=== PATIENT | female | born 1955 ===

== ENCOUNTER 2018-07-14 09:06 | Inpatient (IN) | payer MEDICARE ==
[2018-07-14] MEDS ORDERED: ACETAMINOPHEN TAB 325 MG TAB PO PRN (10:56)
[2018-07-14 12:16] LABS: Basophils % (A) 0 %; Eosinophils % (A) 0 %; HCT 37.6 % (34.0-46.0); Lymphocytes # (A) 0.5 k/uL (1.0-4.8); Lymphocytes % (A) 5 %; MCH 28.6 pg (25.0-35.0); MCHC 31.8 g/dL (31.0-37.0); MCV 89.9 fL (80.0-100.0); Mean Platelet Volume 8.1; Monocytes # (A) 0.2 k/uL (0-1.0); Monocytes % (A) 1 %; Neutrophils # (A) 10.5 k/uL (1.3-7.7); Neutrophils % (A) 93 %; Platelet Count 261 k/uL (150-450); RBC 4.18 m/uL (3.80-5.40); RDW 14.6 % (11.5-15.5); WBC 11.2 k/uL (3.8-10.6)
[2018-07-14] MEDS ORDERED: HYDROGEN PEROXIDE BOTTLE TOPICAL ONE (12:20)
[2018-07-14 12:28] LABS: ALT 24 U/L (9-52); AST 26 U/L (14-36); Alkaline Phosphatase 120 U/L (38-126); Anion Gap 11 mmol/L; Bilirubin, Delta 0.3 mg/dL (0.0-0.2); Blood Urea Nitrogen 12 mg/dL (7-17); Carbon Dioxide 22 mmol/L (22-30); Chloride 108 mmol/L (98-107); Glucose 127 mg/dL (74-99); Potassium 4.4 mmol/L (3.5-5.1); Sodium 141 mmol/L (137-145); Total Bilirubin 0.3 mg/dL (0.2-1.3); Total Protein 6.8 g/dL (6.3-8.2)
--- NOTE | 2018-07-14 12:54 | P.HPIM ---
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 Roa's esophagus,. As per documentation patient was chief complaint is shortness of her breast with patent trach its suction. Patient states that she is developing shortness of breath over 1-2 days which was really badly one day prior to admission to the hospital. Associated with cough and some phlegm which she couldn't tell the color because this through the trach, however she states she has chronic cough. He should have some chest pain on both sides of the lateral chest, and patient states it feels like I pulled my muscle. And they get worse with increasing movements. However patient denies fever. No hemoptysis. No change in urine or bowel habits. No dizziness. No syncope. No headache. An [place] her WBC is 14.2 K. Hemoglobin 11.7. Platelets 177. INR 1.0. BMP was unremarkable with creatinine 0.9. LFTs was unremarkable. Troponin is elevated at 0.8 doubt d-dimer was 2.17. Review of Systems CONSTITUTIONAL: No fever, no malaise, no fatigue. HEENT: No recent visual problems or hearing problems. Denied any sore throat. CARDIOVASCULAR: No orthopnea, PND, no palpitations, no syncope. PULMONARY: no hemoptysis. GASTROINTESTINAL: No diarrhea, no nausea, no vomiting, no abdominal pain. Normoactive bowel sounds. NEUROLOGICAL: No headaches, no weakness, no numbness. HEMATOLOGICAL: Denies any bleeding or petechiae. GENITOURINARY: Denies any burning micturition, frequency, or urgency. MUSCULOSKELETAL/RHEUMATOLOGICAL: Denies any joint pain, swelling, or any muscle pain. ENDOCRINE: Denies any polyuria or polydipsia. GENERAL: The patient is alert and oriented x3, not in any acute distress. Well developed, well nourished. HEENT: Pupils are round and equally reacting to light. EOMI. No scleral icterus. No conjunctival pallor. Normocephalic, atraumatic. No pharyngeal erythema. No thyromegaly. CARDIOVASCULAR: S1 and S2 present. No murmurs, rubs, or gallops. PULMONARY: Chest is clear to auscultation, no wheezing or crackles. ABDOMEN: Soft, nontender, nondistended, normoactive bowel sounds. No palpable organomegaly. MUSCULOSKELETAL: No joint swelling or deformity. EXTREMITIES: No cyanosis, clubbing, or pedal edema. NEUROLOGICAL: Gross neurological examination did not reveal any focal deficits. SKIN: No rashes. Labs and medication were reviewed.. Continue same treatment. Continue with symptomatic treatment. Resume home medication. Monitor lytes and vitals. DVT and GI prophylaxis. Further recommendations of the clinical course of the patient DVT prophylaxis: Subcutaneous heparin GI Prophylaxis: Pepcid PT/OT: Pending Prognosis is guarded Past Medical History Past Medical History: Asthma, Cancer, COPD, GERD/Reflux, Hypertension, Osteoarthritis (OA), Pneumonia, Renal Disease Additional Past Medical History / Comment(s): 2006 cancerous mass wrapped around vocal cords-treated with chemo/radiation, 2013 R lung cancer treated with chemo/radiation, 10/2016 R kidney cancer with surgery, trach d/t scar tissue obstructing airflow, neuropathies d/t chemo/radiation, bronchitis, roa's esophagus, hiatal hernia, generalized arthrtitis multiple joints. History of Any Multi-Drug Resistant Organisms: None Reported Additional Past Surgical History / Comment(s): 10/2016 R kidney cryosurgery d/t cancer, bronchoscopies, EGDs, colonoscopies, tracheostomy, mediport. Past Anesthesia/Blood Transfusion Reactions: No Reported Reaction, Motion Sickness Smoking Status: Former smoker - Past Family History Mother Family Medical History: Coronary Artery Disease (CAD), Diabetes Mellitus Additional Family Medical History / Comment(s): Mother of sepsis at the age of 62 yrs. She had heart disease. Father Family Medical History: Coronary Artery Disease (CAD), Myocardial Infarction ([place] ) Additional Family Medical History / Comment(s): Father had multiple MIs and of a [place] at the age of 59yrs. Medications and Allergies Home Medications Medication Instructions Recorded Confirmed Type Albuterol Nebulized [Ventolin 1.25 mg INHALATION RT-QID PRN 07/14/18 07/14/18 History Nebulized] Gabapentin [Neurontin] 300 mg PO HS 07/14/18 07/14/18 History HYDROcodone/APAP 10-325MG [[place] 1 tab PO Q4HR PRN 07/14/18 07/14/18 History 10-325] Lisinopril 20 mg PO DAILY 07/14/18 07/14/18 History Metoprolol Succinate [Toprol XL] 25 mg PO DAILY 07/14/18 07/14/18 History Allergies Allergy/AdvReac Type Severity Reaction Status Date / Time morphine Allergy Unknown Verified 07/14/18 10:45 Physical Exam Vitals: Vital Signs Temp Pulse Resp BP Pulse Ox 07/14/18 11:43 98.5 F 119 H 24 128/74 94 L 07/14/18 09:10 117 H 24 145/82 98 GENERAL: The patient is alert and oriented x3, not in any acute distress. Well developed, well nourished. HEENT: Pupils are round and equally reacting to light. EOMI. No scleral icterus. No conjunctival pallor. Normocephalic, atraumatic. No pharyngeal erythema. No thyromegaly. CARDIOVASCULAR: S1 and S2 present. No murmurs, rubs, or gallops. -PULMONARY: Chest is clear to auscultation, bilateral scattered wheezing. Patient have patent trach, with trach collar in place. ABDOMEN: Soft, nontender, nondistended, normoactive bowel sounds. No palpable organomegaly. MUSCULOSKELETAL: No joint swelling or deformity. EXTREMITIES: No cyanosis, clubbing, or pedal edema. NEUROLOGICAL: Gross neurological examination did not reveal any focal deficits. SKIN: No rashes. Results CBC & Chem 7: 07/14/18 11:17 Labs: Abnormal Lab Results - Last 24 Hours (Table) 07/14/18 Range/Units 11:17 WBC 11.2 H (3.8-10.6) k/uL Neutrophils # 10.5 H (1.3-7.7) k/uL Lymphocytes # 0.5 L (1.0-4.8) k/uL Thrombosis Risk Factor Assmnt - Choose All That Apply Any of the Below Risk Factors Present?: Yes Each Factor Represents 1 point: Abnormal pulmonary function (COPD), Obesity ( BMI >25) Other Risk Factors: Yes Each Risk Factor Represents 2 Points: Age 61-74 years, Malignancy Other congenital or acquired thrombophilia - If yes, enter type in comment: No Thrombosis Risk Factor Assessment Total Risk Factor Score: 6 Thrombosis Risk Factor Assessment Level: High Risk Assessment and Plan Assessment: Acute dyspnea with chest pain, rule out cardiac and pulmonary causes Possible acute COPD exacerbation Elevated troponins Elevated lactic acid High d-dimer 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 Hawkisn. Patient is status post trach. GERD Hypertension Plan: This is a pleasant 62 female presents with COPD exacerbation. We'll call cardiology and pulmonary consult for the above abnormality, continue with IV fluids and IV antibiotics. Continue with a breathing treatment. Continue with steroids, continue with oxygen inferior trach collar. Labs and medication were reviewed.. Continue same treatment. Continue with symptomatic treatment. Resume home medication. Monitor lytes and vitals. DVT and GI prophylaxis. Further recommendations of the clinical course of the patient DVT prophylaxis: Subcutaneous heparin GI Prophylaxis: Pepcid PT/OT: Pending Prognosis is guarded
[2018-07-14] MEDS: FAMOTIDINE 20 MG/2 ML VIAL IV SCH ×2 (14:52→21:21)
[2018-07-14] MEDS: HEPARIN SODIUM,PORCINE 5,000 UNIT/ML 1 ML VIAL SQ SCH (14:53)
[2018-07-14] MEDS: methylPREDNISolone SOD SUCCI 40 MG/ML 1 ML VIAL IV SCH (14:53)
[2018-07-14] MEDS: AZITHROMYCIN 500 MG in SODIUM CHLORIDE 0.9% 250 ML IVPB SCH (15:36)
[2018-07-14] MEDS: IPRATROPIUM-ALBUTEROL 3 ML NEB INHALATION SCH ×2 (15:47→20:05)
[2018-07-14] MEDS: HYDROcodone/APAP 10-325MG 1 EACH TAB PO PRN (21:19)
[2018-07-14] MEDS: GABAPENTIN 300 MG CAP PO SCH (21:21)
[2018-07-15] MEDS: HEPARIN SODIUM,PORCINE 5,000 UNIT/ML 1 ML VIAL SQ SCH ×4 (00:13→23:35)
[2018-07-15] MEDS: methylPREDNISolone SOD SUCCI 40 MG/ML 1 ML VIAL IV SCH ×4 (00:13→23:35)
[2018-07-15] MEDS: HYDROcodone/APAP 10-325MG 1 EACH TAB PO PRN ×4 (04:13→21:25)
[2018-07-15 06:08] LABS: Glucose,Whole Blood 130 mg/dL (75-99)
[2018-07-15] MEDS: INSULIN ASPART 100 UNIT/ML 1 ML 10 ML VIAL SQ SCH ×4 (06:59→21:23)
[2018-07-15 08:03] LABS: Basophils % (A) 0 %; Eosinophils % (A) 0 %; HGB 10.7 gm/dL (11.4-16.0); Lymphocytes # (A) 0.7 k/uL (1.0-4.8); Lymphocytes % (A) 7 %; MCH 28.1 pg (25.0-35.0); MCHC 32.2 g/dL (31.0-37.0); Mean Platelet Volume 6.9; Monocytes # (A) 0.4 k/uL (0-1.0); Monocytes % (A) 4 %; Neutrophils # (A) 9.8 k/uL (1.3-7.7); Neutrophils % (A) 89 %; Platelet Count 264 k/uL (150-450); RDW 14.6 % (11.5-15.5)
[2018-07-15 08:23] LABS: Anion Gap 10 mmol/L; Blood Urea Nitrogen 17 mg/dL (7-17); Calcium 9.4 mg/dL (8.4-10.2); Carbon Dioxide 22 mmol/L (22-30); Chloride 107 mmol/L (98-107); Glucose 118 mg/dL (74-99); Potassium 4.5 mmol/L (3.5-5.1); Sodium 139 mmol/L (137-145)
[2018-07-15] MEDS: IPRATROPIUM-ALBUTEROL 3 ML NEB INHALATION SCH ×4 (08:28→19:52)
[2018-07-15] MEDS: FAMOTIDINE 20 MG/2 ML VIAL IV SCH (08:50)
[2018-07-15] MEDS: LISINOPRIL 20 MG TAB PO SCH (08:50)
[2018-07-15] MEDS: METOPROLOL SUCCINATE (ER) 25 MG TAB.ER.24H PO SCH (08:50)
[2018-07-15 11:25] LABS: Glucose,Whole Blood 112 mg/dL (75-99)
--- NOTE | 2018-07-15 13:31 | XR ---
EXAMINATION TYPE: XR chest 2V DATE OF EXAM: 07/15/2018 COMPARISON: NONE TECHNIQUE: PA and lateral views submitted. HISTORY: Shortness of breath FINDINGS: Tracheostomy tube is seen and there is a left-sided Mediport. No pneumothorax. Subsegmental consolida tion at both lung bases. No overt failure. Curvature the spine with multilevel degenerative changes s een. Surgical clips in the abdomen noted. IMPRESSION: 1. Bilateral lower lobe atelectasis favored over pneumonia correlate clinically.
--- NOTE | 2018-07-15 14:49 | P.CNPUL ---
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 She has a chronic tracheostomy for last 10 years related to scar tissue obstructing airflow. History of Roa's esophagus. 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 Patient presents the emergency department for evaluation of shortness of breath for last couple of days, cough, some phlegm production, patient was having some chest wall soreness on both sides of her lower rib cage likely from coughing. Pain is worse with increasing movement. Denied any fever, denied any chills, no hemoptysis. No nausea, no vomiting or diarrhea. No lightheadedness, no dizziness. Patient went to [facility], and her white white count was 14.2, hemoglobin was 11.7, INR was within normal limits, BMP was unremarkable, LFTs were within normal limits, troponin was 0.8 and d-dimer was 2.17. Chest x-ray showed bilateral lower lobe atelectasis, no overt failure, no pneumothorax. Follow blood work today showed WBC of 11.0, hemoglobin is 10.7, BMP was within normal limits, second troponin was 0.549. Patient is currently on FiO2 of 35%. Review of Systems All systems: negative Constitutional: Denies chills, Denies fever Eyes: denies blurred vision, denies pain Ears, nose, mouth and throat: Denies headache, Denies sore throat Cardiovascular: Denies chest pain, Denies shortness of breath Respiratory: Reports cough with sputum, Reports dyspnea, Reports home oxygen, Denies cough Gastrointestinal: Denies abdominal pain, Denies diarrhea, Denies nausea, Denies vomiting Genitourinary: Denies dysuria, Denies hematuria Musculoskeletal: Denies myalgias Integumentary: Denies pruritus, Denies rash Neurological: Denies numbness, Denies weakness Psychiatric: Denies anxiety, Denies depression Endocrine: Denies fatigue, Denies weight change Past Medical History Past Medical History: Asthma, Cancer, COPD, GERD/Reflux, Hypertension, Osteoarthritis (OA), Pneumonia, Renal Disease Additional Past Medical History / Comment(s): 2006 cancerous mass wrapped around vocal cords-treated with chemo/radiation, 2013 R lung cancer treated with chemo/radiation, 10/2016 R kidney cancer with surgery, trach d/t scar tissue obstructing airflow, neuropathies d/t chemo/radiation, bronchitis, roa's esophagus, hiatal hernia, generalized arthrtitis multiple joints. History of Any Multi-Drug Resistant Organisms: None Reported Additional Past Surgical History / Comment(s): 10/2016 R kidney cryosurgery d/t cancer, bronchoscopies, EGDs, colonoscopies, tracheostomy, mediport. Past Anesthesia/Blood Transfusion Reactions: No Reported Reaction, Motion Sickness Smoking Status: Former smoker - Past Family History Mother Family Medical History: Coronary Artery Disease (CAD), Diabetes Mellitus Additional Family Medical History / Comment(s): Mother of sepsis at the age of 62 yrs. She had heart disease. Father Family Medical History: Coronary Artery Disease (CAD), Myocardial Infarction ([place] ) Additional Family Medical History / Comment(s): Father had multiple MIs and of a [place] at the age of 59yrs. Medications and Allergies Home Medications Medication Instructions Recorded Confirmed Type Albuterol Nebulized [Ventolin 1.25 mg INHALATION RT-QID PRN 07/14/18 07/14/18 History Nebulized] Gabapentin [Neurontin] 300 mg PO HS 07/14/18 07/14/18 History HYDROcodone/APAP 10-325MG [[place] 1 tab PO Q4HR PRN 07/14/18 07/14/18 History 10-325] Lisinopril 20 mg PO DAILY 07/14/18 07/14/18 History Metoprolol Succinate [Toprol XL] 25 mg PO DAILY 07/14/18 07/14/18 History Allergies Allergy/AdvReac Type Severity Reaction Status Date / Time morphine Allergy Unknown Verified 07/14/18 10:45 Physical Exam Vitals: Vital Signs Temp Pulse Pulse Resp BP Pulse Ox 07/15/18 12:34 108 H 07/15/18 12:24 104 H 07/15/18 09:08 98.5 F 111 H 18 128/73 98 07/15/18 08:42 110 H 07/15/18 08:28 108 H 07/15/18 04:00 98.3 F 118 H 23 145/91 96 07/15/18 00:00 97.8 F 100 21 126/71 95 07/14/18 20:16 118 H 07/14/18 20:06 116 H 07/14/18 20:00 97.5 F L 119 H 19 135/81 97 07/14/18 16:01 120 H 07/14/18 16:00 98.6 F 119 H 18 131/77 97 07/14/18 15:52 95 07/14/18 15:51 116 H Intake and Output 07/14/18 07/15/18 07/15/18 22:59 06:59 14:59 Intake Total 240 50 360 Output Total 300 Balance 240 50 60 Intake: IV 50 0.9 50 Oral 240 360 Output: Urine 300 Other: Voiding Method Toilet Toilet Toilet # Voids 2 2 Weight 85.8 kg GENERAL EXAM: Alert, comfortable in no apparent distress. HEAD: Normocephalic/atraumatic. EYES: Normal reaction of pupils, equal size. Conjunctiva pink, sclera white. NOSE: Clear with pink turbinates. THROAT: No erythema or exudates. NECK: No masses, no JVD, no thyroid enlargement, no adenopathy. CHEST: No chest wall deformity. Symmetrical expansion. LUNGS: Equal air entry with no crackles, wheeze, rhonchi or dullness. CVS: Regular rate and rhythm, normal S1 and S2, no gallops, no murmurs, no rubs ABDOMEN: Soft, nontender. No hepatosplenomegaly, normal bowel sounds, no guarding or rigidity. EXTREMITIES: No clubbing, no edema, no cyanosis, 2+ pulses and upper and lower extremities. MUSCULOSKELETAL: Muscle strength and tone normal. SPINE: No scoliosis or deformity SKIN: No rashes CENTRAL NERVOUS SYSTEM: Alert and oriented -3. No focal deficits, tone is normal in all 4 extremities. PSYCHIATRIC: Alert and oriented -3. Appropriate affect. Intact judgment and insight. Results - Laboratory Findings CBC and BMP: 07/15/18 06:29 07/15/18 06:29 Abnormal lab findings: Abnormal Labs 07/14/18 07/14/18 07/14/18 11:17 11:17 16:48 WBC 11.2 H Hgb Hct Neutrophils # 10.5 H Lymphocytes # 0.5 L Chloride 108 H Glucose 127 H POC Glucose (mg/dL) Delta Bilirubin 0.3 H Troponin I 0.549 H* 07/15/18 07/15/18 07/15/18 06:06 06:29 06:29 WBC 11.0 H Hgb 10.7 L Hct 33.0 L Neutrophils # 9.8 H Lymphocytes # 0.7 L Chloride Glucose 118 H POC Glucose (mg/dL) 130 H Delta Bilirubin Troponin I 07/15/18 11:23 WBC Hgb Hct Neutrophils # Lymphocytes # Chloride Glucose POC Glucose (mg/dL) 112 H Delta Bilirubin Troponin I - Diagnostic Findings Chest x-ray: report reviewed, image reviewed Assessment and Plan Plan: Assessment: #1. Acute exacerbation of chronic obstructive pulmonary disease #2. Mildly elevated troponins #3. Elevated d-dimer #4. History of COPD #5. Chronic tracheostomy related to scar tissue obstructing airflow #6. Vocal cord cancer diagnosed in 2006, status post chemotherapy and radiation. #7. History of lung cancer, status post chemotherapy and radiation, and the details regarding the type of lung cancer, stage, with the treatment are unavailable to us #8. History of renal cancer, status post right kidney cryotherapy #9. Hypertension #10. History of osteoarthritis Plan: Continue with current medical treatment, IV steroids, antibiotic treatments, bronchodilators. States she's feeling better compared to admission. Follow-up chest x-ray was obtained and reviewed by Dr. Boyle showed no clear evidence of pneumonia, showed bilateral lower lobe atelectasis. No significant leukocytosis , mild scattered wheezing. No acute distress. GI and DVT prophylaxis. I performed a history & physical examination of the patient and discussed their management with my nurse practitioner, Aure Don. I reviewed the nurse practitioner's note and agree with the documented findings and plan of care. Lung sounds are positive for mild scattered wheezing. The findings and the impression was discussed with the patient. I attest to the documentation by the nurse practitioner. Time with Patient: Greater than 30
[2018-07-15] MEDS: AZITHROMYCIN 500 MG in SODIUM CHLORIDE 0.9% 250 ML IVPB SCH (15:19)
--- NOTE | 2018-07-15 16:24 | P.CRDCN ---
History of Present Illness Consult date: 07/15/18 History of present illness: This is a 62-year-old female with history of COPD, GERD syndrome, hypertension and also cancer of the vocal cords status post chemo and radiation therapy in 2006, lung cancer diagnosed in 2013 and was treated with chemo and radiation, renal cancer diagnosed in 2016. Status post radiotherapy, also has chronic tracheostomy for the last 10 years. History of Roa's esophagus. 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 She came to the emergency department with complaints of shortness of breath, cough and sputum production. She was having some chest soreness seemed to be from coughing. The pain increases on deep breathing. Patient had 2 troponin values which are abnormal. These appear to be secondary to oxygen supply demand mismatch. She is comfortable today. Not having any chest pain and her breathing has improved. We will get an echocardiogram to assess LV function. Further recommendations depend upon the clinical course. Review of Systems As per the chart Past Medical History Past Medical History: Asthma, Cancer, COPD, GERD/Reflux, Hypertension, Osteoarthritis (OA), Pneumonia, Renal Disease Additional Past Medical History / Comment(s): 2006 cancerous mass wrapped around vocal cords-treated with chemo/radiation, 2013 R lung cancer treated with chemo/radiation, 10/2016 R kidney cancer with surgery, trach d/t scar tissue obstructing airflow, neuropathies d/t chemo/radiation, bronchitis, roa's esophagus, hiatal hernia, generalized arthrtitis multiple joints. History of Any Multi-Drug Resistant Organisms: None Reported Additional Past Surgical History / Comment(s): 10/2016 R kidney cryosurgery d/t cancer, bronchoscopies, EGDs, colonoscopies, tracheostomy, mediport. Past Anesthesia/Blood Transfusion Reactions: No Reported Reaction, Motion Sickness Smoking Status: Former smoker - Past Family History Mother Family Medical History: Coronary Artery Disease (CAD), Diabetes Mellitus Additional Family Medical History / Comment(s): Mother of sepsis at the age of 62 yrs. She had heart disease. Father Family Medical History: Coronary Artery Disease (CAD), Myocardial Infarction ([place] ) Additional Family Medical History / Comment(s): Father had multiple MIs and of a [place] at the age of 59yrs. Medications and Allergies Home Medications Medication Instructions Recorded Confirmed Type Albuterol Nebulized [Ventolin 1.25 mg INHALATION RT-QID PRN 07/14/18 07/14/18 History Nebulized] Gabapentin [Neurontin] 300 mg PO HS 07/14/18 07/14/18 History HYDROcodone/APAP 10-325MG [[place] 1 tab PO Q4HR PRN 07/14/18 07/14/18 History 10-325] Lisinopril 20 mg PO DAILY 07/14/18 07/14/18 History Metoprolol Succinate [Toprol XL] 25 mg PO DAILY 07/14/18 07/14/18 History Allergies Allergy/AdvReac Type Severity Reaction Status Date / Time morphine Allergy Unknown Verified 07/14/18 10:45 Physical Exam Vitals: Vital Signs Temp Pulse Pulse Resp BP Pulse Ox 07/15/18 15:38 98 07/15/18 15:26 96 07/15/18 12:34 108 H 07/15/18 12:24 104 H 07/15/18 09:08 98.5 F 111 H 18 128/73 98 07/15/18 08:42 110 H 07/15/18 08:28 108 H 07/15/18 04:00 98.3 F 118 H 23 145/91 96 07/15/18 00:00 97.8 F 100 21 126/71 95 07/14/18 20:16 118 H 07/14/18 20:06 116 H 07/14/18 20:00 97.5 F L 119 H 19 135/81 97 Intake and Output 07/15/18 07/15/18 07/15/18 06:59 14:59 22:59 Intake Total 50 360 Output Total 300 Balance 50 60 Intake: IV 50 0.9 50 Oral 360 Output: Urine 300 Other: Voiding Method Toilet Toilet # Voids 2 Weight 85.8 kg GENERAL EXAM: Patient is alert and oriented and doesn't appear to be in any acute distress HEENT: Normocephalic. Normal reaction of pupils, equal size, normal range of extraocular motion. No erythema or exudates in the throat. NECK: Patient has tracheostomy tube. CHEST: No chest wall deformity. LUNGS: Diminished breath sounds HEART: S1 and S2 normal with no audible mumurs or gallops. Regular rhythm, femorals equal on both sides.. ABDOMEN: No hepatosplenomegaly, normal bowel sounds, no guarding or rigidity. SKIN: No rashes CENTRAL NERVOUS SYSTEM: No focal deficits. EXTREMITIES: No cyanosis, clubbing or edema. Results 07/15/18 06:29 07/15/18 06:29 Cardiac Enzymes 07/14/18 Range/Units 16:48 Troponin I 0.549 H* (0.000-0.034) ng/mL CBC 07/15/18 Range/Units 06:29 WBC 11.0 H (3.8-10.6) k/uL RBC 3.80 (3.80-5.40) m/uL Hgb 10.7 L (11.4-16.0) gm/dL Hct 33.0 L (34.0-46.0) % Plt Count 264 (150-450) k/uL Comprehensive Metabolic Panel 07/15/18 Range/Units 06:29 Sodium 139 (137-145) mmol/L Potassium 4.5 (3.5-5.1) mmol/L Chloride 107 (98-107) mmol/L Carbon Dioxide 22 (22-30) mmol/L BUN 17 (7-17) mg/dL Creatinine 0.70 (0.52-1.04) mg/dL Glucose 118 H (74-99) mg/dL Calcium 9.4 (8.4-10.2) mg/dL Current Medications Generic Name Dose Route Start Last Admin Trade Name Freq PRN Reason Stop Dose Admin Acetaminophen 325 mg 07/14/18 10:56 Tylenol Tab PO Q6HR PRN Fever and/ or Pain Hydrocodone Bitart/Acetaminophen 1 each 07/14/18 20:52 07/15/18 15:17 [place] 10 PO 1 each Q4HR PRN Administration Pain Albuterol/Ipratropium 3 ml 07/14/18 16:00 07/15/18 15:26 Duoneb 0.5 Mg-3 Mg/3 Ml Soln INHALATION 3 ml RT-QID RADHA Administration Azithromycin 500 mg 07/16/18 09:00 Zithromax PO DAILY RADHA Budesonide 1 mg 07/15/18 20:00 Pulmicort INHALATION RT-BID RADHA Famotidine 20 mg 07/15/18 21:00 Pepcid PO Q12HR RADHA Formoterol Fumarate 20 mcg 07/15/18 20:00 Perforomist INHALATION RT-BID [facility] Gabapentin 300 mg 07/14/18 21:00 07/14/18 21:21 Neurontin PO 300 mg HS RADHA Administration Heparin Sodium (Porcine) 5,000 unit 07/14/18 16:00 07/15/18 08:50 Heparin SQ 5,000 unit Q8HR RADHA Administration Azithromycin 500 mg/ Sodium 250 mls @ 250 mls/hr 07/14/18 14:00 07/15/18 15: 19 Chloride IVPB 07/15/18 23:59 250 mls/hr DAILY@1400 RADHA Administration Ceftriaxone Sodium 1,000 mg/ 50 mls @ 100 mls/hr 07/14/18 14:00 07/15/18 08: 50 Sodium Chloride IVPB 100 mls/hr Q24HR RADHA Administration Insulin Aspart 0 unit 07/15/18 07:30 07/15/18 11:45 Novolog SQ Not Given ACHS [facility] Protocol Lisinopril 20 mg 07/15/18 09:00 07/15/18 08:50 Zestril PO 20 mg DAILY RADHA Administration Methylprednisolone Sodium Succinate 40 mg 07/14/18 16:00 07/15/18 08:50 Solu-Medrol IV 40 mg Q8HR RADHA Administration Metoprolol Succinate 25 mg 07/15/18 09:00 07/15/18 08:50 Toprol Xl PO 25 mg DAILY RADHA Administration Intake and Output 07/15/18 07/15/18 07/15/18 06:59 14:59 22:59 Intake Total 50 360 Output Total 300 Balance 50 60 Intake: IV 50 0.9 50 Oral 360 Output: Urine 300 Other: Voiding Method Toilet Toilet # Voids 2 Weight 85.8 kg 07/15/18 06:29 07/15/18 06:29 EKG Interpretations (text) Sinus rhythm with nonspecific T-wave changes Assessment and Plan (1) Atypical chest pain Current Visit: Yes Status: Acute Code(s): R07.89 - OTHER CHEST PAIN SNOMED Code(s): 588002752 (2) Troponin level elevated Current Visit: Yes Status: Acute Code(s): R74.8 - ABNORMAL LEVELS OF OTHER SERUM ENZYMES SNOMED Code(s): 861189929 (3) COPD with exacerbation Current Visit: Yes Status: Acute Code(s): J44.1 - CHRONIC OBSTRUCTIVE PULMONARY DISEASE W (ACUTE) EXACERBATION SNOMED Code(s): 317526855 (4) Hypertension, essential Current Visit: Yes Status: Acute Code(s): I10 - ESSENTIAL (PRIMARY) HYPERTENSION SNOMED Code(s): 16826885 Plan: Continue current medical management. We'll get an echo Doppler study tomorrow. If echo shows normal LV function, no further cardiac evaluation at this time
[2018-07-15 16:33] LABS: Glucose,Whole Blood 112 mg/dL (75-99)
[2018-07-15] MEDS: FORMOTEROL FUMARATE 20 MCG/2 ML NEBU INHALATION SCH (19:51)
[2018-07-15] MEDS: FAMOTIDINE 20 MG TAB PO SCH (19:53)
[2018-07-15] MEDS: GABAPENTIN 300 MG CAP PO SCH (19:53)
[2018-07-15] MEDS: BUDESONIDE 1 MG/2 ML NEBU INHALATION SCH (20:00)
[2018-07-15 20:49] LABS: Glucose,Whole Blood 114 mg/dL (75-99)
--- NOTE | 2018-07-15 22:28 | P.PN ---
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 Galvez's esophagus,. As per documentation patient was chief complaint is shortness of her breast with patent trach its suction. Patient states that she is developing shortness of breath over 1-2 days which was really badly one day prior to admission to the hospital. Associated with cough and some phlegm which she couldn't tell the color because this through the trach, however she states she has chronic cough. He should have some chest pain on both sides of the lateral chest, and patient states it feels like I pulled my muscle. And they get worse with increasing movements. However patient denies fever. No hemoptysis. No change in urine or bowel habits. No dizziness. No syncope. No headache. An [place] her WBC is 14.2 K. Hemoglobin 11.7. Platelets 177. INR 1.0. BMP was unremarkable with creatinine 0.9. LFTs was unremarkable. Troponin is elevated at 0.8 doubt d-dimer was 2.17. 07/15/18 the pt feels much better regarding her breathing today , milder dyspnea, and coughing with litltle phlegm , no chest pain , pt was noticed moving in the room with less difficulty, however she was complaining from bilateral leg pain , we will order doppler us to rule out dvt. wbc is 11 K and sugar is controlled. afebrile . pulmonary team has already evaluated the pt . pt significant and rapid improvement goes more with the diagnosis of acute copd exacerbation . cardiology team think if echo show no significant abnormality no further cardiac workup is indicated Objective - Vital Signs Vital signs: Vital Signs Temp 98.2 F 07/15/18 19:44 Pulse 100 07/15/18 20:14 Resp 15 07/15/18 19:44 BP 150/81 07/15/18 19:44 Pulse Ox 98 07/15/18 19:44 Intake & Output 07/15/18 07/15/18 07/16/18 06:59 18:59 06:59 Intake Total 50 600 Output Total 900 Balance 50 -300 Weight 85.8 kg Intake: IV 50 0.9 50 Oral 600 Output: Urine 900 Other: Voiding Method Toilet Toilet Toilet # Voids 2 - Exam GENERAL: The patient is alert and oriented x3, not in any acute distress. Well developed, well nourished. HEENT: Pupils are round and equally reacting to light. EOMI. No scleral icterus. No conjunctival pallor. Normocephalic, atraumatic. No pharyngeal erythema. No thyromegaly. CARDIOVASCULAR: S1 and S2 present. No murmurs, rubs, or gallops. -PULMONARY: Chest is clear to auscultation, bilateral scattered wheezing. Patient have patent trach, with trach collar in place. ABDOMEN: Soft, nontender, nondistended, normoactive bowel sounds. No palpable organomegaly. MUSCULOSKELETAL: No joint swelling or deformity. EXTREMITIES: No cyanosis, clubbing, or pedal edema. NEUROLOGICAL: Gross neurological examination did not reveal any focal deficits. SKIN: No rashes. - Labs CBC & Chem 7: 07/15/18 06:29 07/15/18 06:29 Labs: Abnormal Lab Results - Last 24 Hours (Table) 07/15/18 07/15/18 07/15/18 Range/Units 06:06 06:29 06:29 WBC 11.0 H (3.8-10.6) k/uL Hgb 10.7 L (11.4-16.0) gm/dL Hct 33.0 L (34.0-46.0) % Neutrophils # 9.8 H (1.3-7.7) k/uL Lymphocytes # 0.7 L (1.0-4.8) k/uL Glucose 118 H (74-99) mg/dL POC Glucose (mg/dL) 130 H (75-99) mg/dL 07/15/18 07/15/18 07/15/18 Range/Units 11:23 16:32 20:44 WBC (3.8-10.6) k/uL Hgb (11.4-16.0) gm/dL Hct (34.0-46.0) % Neutrophils # (1.3-7.7) k/uL Lymphocytes # (1.0-4.8) k/uL Glucose (74-99) mg/dL POC Glucose (mg/dL) 112 H 112 H 114 H (75-99) mg/dL Assessment and Plan Assessment: Acute dyspnea with chest pain, rule out cardiac and pulmonary causes Possible acute COPD exacerbation Elevated troponins Elevated lactic acid High d-dimer 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 Hawkins. Patient is status post trach. GERD Hypertension Plan: This is a pleasant 62 female presents with COPD exacerbation. We'll call cardiology and pulmonary consult for the above abnormality, continue with IV fluids and IV antibiotics. Continue with a breathing treatment. Continue with steroids, continue with oxygen inferior trach collar. Labs and medication were reviewed.. Continue same treatment. Continue with symptomatic treatment. Resume home medication. Monitor lytes and vitals. DVT and GI prophylaxis. Further recommendations of the clinical course of the patient DVT prophylaxis: Subcutaneous heparin GI Prophylaxis: Pepcid PT/OT: Pending Prognosis is guarded
--- NOTE | 2018-07-16 00:14 | US ---
EXAMINATION TYPE: US venous doppler duplex LE BI DATE OF EXAM: 07/16/2018 12:03 AM COMPARISON: NONE CLINICAL HISTORY: Rule out DVT. Pain SIDE PERFORMED: Bilateral TECHNIQUE: The lower extremity deep venous system is examined utilizing real time linear array sonog thalia with graded compression, doppler sonography and color-flow sonography. VESSELS IMAGED: External Iliac Vein (EIV) Common Femoral Vein Deep Femoral Vein Greater Saphenous Vein * Femoral Vein Popliteal Vein Small Saphenous Vein * Proximal Calf Veins (* superficial vessels) Right Leg: Negative for DVT Left Leg: Negative for DVT No evidence of DVT bilateral legs. IMPRESSION: Normal bilateral leg duplex venous sonogram. Normal augmentation.
[2018-07-16] MEDS: HYDROcodone/APAP 10-325MG 1 EACH TAB PO PRN ×3 (04:26→15:27)
[2018-07-16 06:13] LABS: Glucose,Whole Blood 130 mg/dL (75-99)
[2018-07-16] MEDS: INSULIN ASPART 100 UNIT/ML 1 ML 10 ML VIAL SQ SCH ×2 (06:18→12:23)
[2018-07-16] MEDS: BUDESONIDE 1 MG/2 ML NEBU INHALATION SCH (07:45)
[2018-07-16] MEDS: FORMOTEROL FUMARATE 20 MCG/2 ML NEBU INHALATION SCH (07:45)
[2018-07-16] MEDS: IPRATROPIUM-ALBUTEROL 3 ML NEB INHALATION SCH ×3 (07:45→15:58)
[2018-07-16 07:49] LABS: Basophils % (A) 0 %; Eosinophils % (A) 0 %; HCT 33.8 % (34.0-46.0); Lymphocytes # (A) 0.8 k/uL (1.0-4.8); Lymphocytes % (A) 9 %; MCH 28.5 pg (25.0-35.0); MCHC 32.5 g/dL (31.0-37.0); MCV 87.9 fL (80.0-100.0); Mean Platelet Volume 6.5; Monocytes # (A) 0.3 k/uL (0-1.0); Monocytes % (A) 4 %; Neutrophils # (A) 7.4 k/uL (1.3-7.7); Neutrophils % (A) 86 %; Platelet Count 277 k/uL (150-450); RBC 3.85 m/uL (3.80-5.40); RDW 14.6 % (11.5-15.5); WBC 8.7 k/uL (3.8-10.6)
[2018-07-16 08:35] VITALS: TEMP 98.5
[2018-07-16] MEDS: HEPARIN SODIUM,PORCINE 5,000 UNIT/ML 1 ML VIAL SQ SCH (08:44)
[2018-07-16] MEDS: LISINOPRIL 20 MG TAB PO SCH (08:45)
[2018-07-16] MEDS: METOPROLOL SUCCINATE (ER) 25 MG TAB.ER.24H PO SCH (08:45)
[2018-07-16] MEDS: FAMOTIDINE 20 MG TAB PO SCH (08:45)
[2018-07-16] MEDS: methylPREDNISolone SOD SUCCI 40 MG/ML 1 ML VIAL IV SCH (08:47)
[2018-07-16] MEDS ORDERED: AZITHROMYCIN 500 MG TAB PO SCH (09:00)
--- NOTE | 2018-07-16 11:48 | ECHOF ---
Referral Reason:Chest pain and cardiomyopathy MEASUREMENTS -------- HEIGHT: 180.3 cm WEIGHT: 85.7 kg BP: 135/86 IVSd: 1.2 cm (0.6 - 1.1) LVIDd: 2.1 cm (3.9 - 5.3) LVPWd: 1.2 cm (0.6 - 1.1) IVSs: 1.2 cm LVIDs: 1.0 cm LVPWs: 1.4 cm Ao Diam: 2.5 cm (2.0 - 3.7) LA Diam: 1.5 cm (2.7 - 3.8) MV E Magdiel: 0.94 m/s MV DecT: 71 ms MV A Magdiel: 1.10 m/s MV E/A Ratio: 0.85 RAP: 5.00 mmHg RVSP: 43.27 mmHg FINDINGS -------- Sinus rhythm. This was a technically difficult study with suboptimal views. The left ventricular size is normal. There is mild concentric left ventricular hypertrophy. Overa ll left ventricular systolic function is normal with, an EF between 55 - 60 %. The right ventricle is normal in size and function. The left atrium is normal in size. The right atrium is normal in size. The aortic valve is trileaflet and appears structurally normal. The mitral valve is normal. Mild mitral regurgitation is present. Mild tricuspid regurgitation present. There is mild pulmonary hypertension. The right ventricular systolic pressure, as measured by Doppler, is 43.27mmHg. There is no pulmonic regurgitation present. The aortic root size is normal. Normal inferior vena cava with normal inspiratory collapse consistent with estimated right atrial pre ssure of 5 mmHg. There is no pericardial effusion. CONCLUSIONS -------- 1. Sinus rhythm. 2. This was a technically difficult study with suboptimal views. 3. The left ventricular size is normal. 4. There is mild concentric left ventricular hypertrophy. 5. Overall left ventricular systolic function is normal with, an EF between 55 - 60 %. 6. The left atrium is normal in size. 7. The aortic valve is trileaflet and appears structurally normal. 8. Mild mitral regurgitation is present. 9. Mild tricuspid regurgitation present. 10. There is mild pulmonary hypertension. 11. There is no pulmonic regurgitation present. 12. The aortic root size is normal. 13. Normal inferior vena cava with normal inspiratory collapse consistent with estimated right atrial pressure of 5 mmHg. 14. There is no pericardial effusion. [employer]: Opal Bowman RDCS
[2018-07-16 11:49] LABS: Glucose,Whole Blood 100 mg/dL (75-99)
--- NOTE | 2018-07-16 12:59 | P.PN ---
Subjective Progress Note Date: 07/16/18 This is a 62-year-old female with history of COPD, GERD syndrome, hypertension and also cancer of the vocal cords status post chemo and radiation therapy in 2006, lung cancer diagnosed in 2013 and was treated with chemo and radiation, renal cancer diagnosed in 2017. Status post radiotherapy, also has chronic tracheostomy for the last 10 years. History of Galvez's esophagus. Apparently she follows the oncologist and radar repairer in [place]. She came to the emergency department with complaints of shortness of breath, cough and sputum production. She was having some chest soreness seemed to be from coughing. The pain increases on deep breathing. Patient had 2 troponin values which are abnormal. These appear to be secondary to oxygen supply demand mismatch. She is comfortable today. Not having any chest pain and her breathing has improved. Echocardiogram with Doppler study was performed which revealed a normal left ventricular systolic function. From cardiology's perspective, we'll follow along with you now on an as-needed basis, please don' t hesitate to call with any questions Objective - Vital Signs Vital signs: Vital Signs Temp 98.5 F 07/16/18 08:20 Pulse 112 H 07/16/18 08:20 Resp 20 07/16/18 08:20 BP 149/85 07/16/18 08:20 Pulse Ox 95 07/16/18 08:20 Intake & Output 07/15/18 07/16/18 07/16/18 18:59 06:59 18:59 Intake Total 600 240 Output Total 900 0 Balance -300 240 Weight 85.9 kg Intake: Oral 600 240 Output: Urine 900 0 Other: Voiding Method Toilet Toilet Toilet # Voids 1 - Exam GENERAL EXAM: Alert, comfortable in no apparent distress. HEAD: Normocephalic/atraumatic. EYES: Normal reaction of pupils, equal size. Conjunctiva pink, sclera white. NOSE: Clear with pink turbinates. THROAT: No erythema or exudates. NECK: No masses, no JVD, no thyroid enlargement, no adenopathy. CHEST: No chest wall deformity. Symmetrical expansion. LUNGS: Equal air entry with no crackles, wheeze, rhonchi or dullness. CVS: Regular rate and rhythm, normal S1 and S2, no gallops, no murmurs, no rubs ABDOMEN: Soft, nontender. No hepatosplenomegaly, normal bowel sounds, no guarding or rigidity. EXTREMITIES: No clubbing, no edema, no cyanosis, 2+ pulses and upper and lower extremities. MUSCULOSKELETAL: Muscle strength and tone normal. SPINE: No scoliosis or deformity SKIN: No rashes CENTRAL NERVOUS SYSTEM: Alert and oriented -3. No focal deficits, tone is normal in all 4 extremities. PSYCHIATRIC: Alert and oriented -3. Appropriate affect. Intact judgment and insight. - Labs CBC & Chem 7: 07/16/18 06:54 07/15/18 06:29 Labs: Abnormal Lab Results - Last 24 Hours (Table) 07/15/18 07/15/18 07/16/18 Range/Units 16:32 20:44 06:11 Hgb (11.4-16.0) gm/dL Hct (34.0-46.0) % Lymphocytes # (1.0-4.8) k/uL POC Glucose (mg/dL) 112 H 114 H 130 H (75-99) mg/dL 07/16/18 07/16/18 Range/Units 06:54 11:46 Hgb 11.0 L (11.4-16.0) gm/dL Hct 33.8 L (34.0-46.0) % Lymphocytes # 0.8 L (1.0-4.8) k/uL POC Glucose (mg/dL) 100 H (75-99) mg/dL Assessment and Plan Plan: Assessment and plan: #1. Acute exacerbation of chronic obstructive pulmonary disease #2. Mildly elevated troponins not consistent with acute coronary syndrome. Echocardiogram with Doppler study revealed a normal left ventricular systolic function. #3. Elevated d-dimer, venous duplex study negative for DVT. #4. History of COPD #5. Chronic tracheostomy related to scar tissue obstructing airflow #6. Vocal cord cancer diagnosed in 2006, status post chemotherapy and radiation. #7. History of lung cancer, status post chemotherapy and radiation, and the details regarding the type of lung cancer, stage, with the treatment are unavailable to us #8. History of renal cancer, status post right kidney cryotherapy #9. Hypertension #10. History of osteoarthritis Plan: From cardiology's perspective, we will follow this patient with you now on an as -needed basis only, least on hesitate to call with any questions. DNP note has been reviewed, I agree with a documented findings and plan of care. Patient was seen and examined.
--- NOTE | 2018-07-16 13:49 | P.PN ---
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 Galvez's esophagus,. As per documentation patient was chief complaint is shortness of her breast with patent trach its suction. Patient states that she is developing shortness of breath over 1-2 days which was really badly one day prior to admission to the hospital. Associated with cough and some phlegm which she couldn't tell the color because this through the trach, however she states she has chronic cough. He should have some chest pain on both sides of the lateral chest, and patient states it feels like I pulled my muscle. And they get worse with increasing movements. However patient denies fever. No hemoptysis. No change in urine or bowel habits. No dizziness. No syncope. No headache. An [place] her WBC is 14.2 K. Hemoglobin 11.7. Platelets 177. INR 1.0. BMP was unremarkable with creatinine 0.9. LFTs was unremarkable. Troponin is elevated at 0.8 doubt d-dimer was 2.17. 07/15/18 the pt feels much better regarding her breathing today , milder dyspnea, and coughing with litltle phlegm , no chest pain , pt was noticed moving in the room with less difficulty, however she was complaining from bilateral leg pain , we will order doppler us to rule out dvt. wbc is 11 K and sugar is controlled. afebrile . pulmonary team has already evaluated the pt . pt significant and rapid improvement goes more with the diagnosis of acute copd exacerbation . cardiology team think if echo show no significant abnormality no further cardiac workup is indicated 07/16/2018 Patient keep improving and feeling better. Patient states she is back to her baseline of breathing. She still complaining from both lower extremity pain. Doppler study was negative for DVT in both legs. Patient denies chest pain. No changes in bowel habits. Patient still has color, she is telling me she does not use oxygen at home just to keep the trach open. Objective - Vital Signs Vital signs: Vital Signs Temp 98.5 F 07/16/18 08:20 Pulse 112 H 07/16/18 08:20 Resp 20 07/16/18 08:20 BP 149/85 07/16/18 08:20 Pulse Ox 95 07/16/18 08:20 Intake & Output 07/15/18 07/16/18 07/16/18 18:59 06:59 18:59 Intake Total 600 240 Output Total 900 0 Balance -300 240 Weight 85.9 kg Intake: Oral 600 240 Output: Urine 900 0 Other: Voiding Method Toilet Toilet Toilet # Voids 1 - Exam GENERAL: The patient is alert and oriented x3, not in any acute distress. Well developed, well nourished. HEENT: Pupils are round and equally reacting to light. EOMI. No scleral icterus. No conjunctival pallor. Normocephalic, atraumatic. No pharyngeal erythema. No thyromegaly. CARDIOVASCULAR: S1 and S2 present. No murmurs, rubs, or gallops. -PULMONARY: Chest is clear to auscultation, bilateral scattered wheezing. Patient have patent trach, with trach collar in place. ABDOMEN: Soft, nontender, nondistended, normoactive bowel sounds. No palpable organomegaly. MUSCULOSKELETAL: No joint swelling or deformity. EXTREMITIES: No cyanosis, clubbing, or pedal edema. NEUROLOGICAL: Gross neurological examination did not reveal any focal deficits. SKIN: No rashes. - Labs CBC & Chem 7: 07/16/18 06:54 07/15/18 06:29 Labs: Abnormal Lab Results - Last 24 Hours (Table) 07/15/18 07/15/18 07/16/18 Range/Units 16:32 20:44 06:11 Hgb (11.4-16.0) gm/dL Hct (34.0-46.0) % Lymphocytes # (1.0-4.8) k/uL POC Glucose (mg/dL) 112 H 114 H 130 H (75-99) mg/dL 07/16/18 07/16/18 Range/Units 06:54 11:46 Hgb 11.0 L (11.4-16.0) gm/dL Hct 33.8 L (34.0-46.0) % Lymphocytes # 0.8 L (1.0-4.8) k/uL POC Glucose (mg/dL) 100 H (75-99) mg/dL Assessment and Plan Assessment: Acute dyspnea with chest pain, rule out cardiac and pulmonary causes Possible acute COPD exacerbation Elevated troponins Elevated lactic acid High d-dimer 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 Hawkins. Patient is status post trach. GERD Hypertension Plan: This is a pleasant 62 female presents with COPD exacerbation. We'll call cardiology and pulmonary consult for the above abnormality, continue with IV fluids and IV antibiotics. Continue with a breathing treatment. Continue with steroids, continue with oxygen inferior trach collar. Labs and medication were reviewed.. Continue same treatment. Continue with symptomatic treatment. Resume home medication. Monitor lytes and vitals. DVT and GI prophylaxis. Further recommendations of the clinical course of the patient DVT prophylaxis: Subcutaneous heparin GI Prophylaxis: Pepcid PT/OT: Pending Prognosis is guarded
--- NOTE | 2018-07-16 14:43 | P.PN ---
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 She has a chronic tracheostomy for last 10 years related to scar tissue obstructing airflow. History of Galvez's esophagus. Follows with medical oncologist, and presales engineer from [place]. Patient presents the emergency department for evaluation of shortness of breath for last couple of days, cough, some phlegm production, patient was having some chest wall soreness on both sides of her lower rib cage likely from coughing. Pain is worse with increasing movement. Denied any fever, denied any chills, no hemoptysis. No nausea, no vomiting or diarrhea. No lightheadedness, no dizziness. Patient went to [facility], and her white white count was 14.2, hemoglobin was 11.7, INR was within normal limits, BMP was unremarkable, LFTs were within normal limits, troponin was 0.8 and d-dimer was 2.17. Chest x-ray showed bilateral lower lobe atelectasis, no overt failure, no pneumothorax. Follow blood work today showed WBC of 11.0, hemoglobin is 10.7, BMP was within normal limits, second troponin was 0.549. Patient is currently on FiO2 of 35%. On 07/16/2018 patient seen in follow-up on selective care unit. She is feeling better today, less congestion and wheezing. back to her baseline in terms of breathing. Doppler studies were negative for DVTs in both legs. Denies any chest pain, denies any dyspnea. Room air pulse ox is 95%. Room air pulse ox is 95%No fever, no chills.cardiogram showed preserved left ventricular systolic function with an EF of 50-65%. Mild mitral regurgitation and mild tricuspid regurgitation, and mild pulmonary hypertension with right-sided pressures of 43 mmHg. Today's labs have been reviewed, and were essentially unremarkable.patient did have some elevated troponins, and was seen by cardiology who indicated that it is probably related to oxygen supply demand mismatch. Objective - Vital Signs Vital signs: Vital Signs Temp 98.5 F 07/16/18 08:20 Pulse 112 H 07/16/18 08:20 Resp 20 07/16/18 08:20 BP 149/85 07/16/18 08:20 Pulse Ox 95 07/16/18 08:20 Intake & Output 07/15/18 07/16/18 07/16/18 18:59 06:59 18:59 Intake Total 600 480 Output Total 900 0 Balance -300 480 Weight 85.9 kg Intake: Oral 600 480 Output: Urine 900 0 Other: Voiding Method Toilet Toilet Toilet # Voids 1 - Exam GENERAL EXAM: Alert, comfortable in no apparent distress. HEAD: Normocephalic/atraumatic. EYES: Normal reaction of pupils, equal size. Conjunctiva pink, sclera white. NOSE: Clear with pink turbinates. THROAT: No erythema or exudates. NECK: No masses, no JVD, no thyroid enlargement, no adenopathy. CHEST: No chest wall deformity. Symmetrical expansion. LUNGS: Equal air entry with no crackles, wheeze, rhonchi or dullness. CVS: Regular rate and rhythm, normal S1 and S2, no gallops, no murmurs, no rubs ABDOMEN: Soft, nontender. No hepatosplenomegaly, normal bowel sounds, no guarding or rigidity. EXTREMITIES: No clubbing, no edema, no cyanosis, 2+ pulses and upper and lower extremities. MUSCULOSKELETAL: Muscle strength and tone normal. SPINE: No scoliosis or deformity SKIN: No rashes CENTRAL NERVOUS SYSTEM: Alert and oriented -3. No focal deficits, tone is normal in all 4 extremities. PSYCHIATRIC: Alert and oriented -3. Appropriate affect. Intact judgment and insight. - Labs CBC & Chem 7: 07/16/18 06:54 07/15/18 06:29 Labs: Abnormal Lab Results - Last 24 Hours (Table) 07/15/18 07/15/18 07/16/18 Range/Units 16:32 20:44 06:11 Hgb (11.4-16.0) gm/dL Hct (34.0-46.0) % Lymphocytes # (1.0-4.8) k/uL POC Glucose (mg/dL) 112 H 114 H 130 H (75-99) mg/dL 07/16/18 07/16/18 Range/Units 06:54 11:46 Hgb 11.0 L (11.4-16.0) gm/dL Hct 33.8 L (34.0-46.0) % Lymphocytes # 0.8 L (1.0-4.8) k/uL POC Glucose (mg/dL) 100 H (75-99) mg/dL Assessment and Plan Plan: Assessment: #1. Acute exacerbation of chronic obstructive pulmonary disease #2. Mildly elevated troponins #3. Elevated d-dimer #4. History of COPD #5. Chronic tracheostomy related to scar tissue obstructing airflow #6. Vocal cord cancer diagnosed in 2006, status post chemotherapy and radiation. #7. History of lung cancer, status post chemotherapy and radiation, and the details regarding the type of lung cancer, stage, with the treatment are unavailable to us #8. History of renal cancer, status post right kidney cryotherapy #9. Hypertension #10. History of osteoarthritis Plan: Patient is improving, no further chest pain, no coughing, no worsening dyspnea. Cardiology consultation was noted. Stable, no acute events overnight. From pulmonary perspective patient is stable for discharge home today, she can follow -up with her presales engineer from [place]. She can be discharged home with outpatient course of oral antibiotics, prednisone taper, and she can go back on her maintenance nebulized treatments and inhalers. I performed a history & physical examination of the patient and discussed their management with my nurse practitioner, Aure Don. I reviewed the nurse practitioner's note and agree with the documented findings and plan of care. Lung sounds are positive for mild scattered wheezing. The findings and the impression was discussed with the patient. I attest to the documentation by the nurse practitioner. Time with Patient: Less than 30
[2018-07-16 15:06] VITALS: BP 139/89; PULSE 96; RESP 16
--- NOTE | 2018-07-20 12:32 | CDI ---
Documentation Clarification Form Date: 07/20/2018 11:40:26 AM From: MARLEN Mckenna; [employer] Phone: If you have a question about this query, please contact [employer] at [phone] between 8am and 5pm. Admit Date: 07/14/2018 9:06:00 AM Patient Name: Brenda Ocampo Visit Number: [id number] Discharge Date: 07/16/2018 ATTENTION: The Clinical Documentation Specialists (CDI) and [facility] Coding Staff appreciate your assistance in clarifying documentation. Please respond to the clarification below the line at the bottom and electronically sign. The CDI & [facility] Coding staff will review the response and follow-up if needed. Please note: Queries are made part of the Legal Health Record. If you have any questions, please contact the author of this message via ITS. Martín Bradley MD Elevated lactic acid is documented in the H&P and progress notes dated 07/15 and 07/16. Patient history/risk factors: Asthma, GERD, HTN and history of multiple CA, including lung, kidney and vocal cords. Clinical Indicators: Shortness of breath, chest pain and cough. Labs: Lactic acid 1.6 Please document confirmation of the diagnosis of elevated lactic acid in your progress notes and/or discharge summary, along with its associated clinical indicators (i.e., signs, symptoms, findings, treatments, monitoring). If this condition was ruled out or documented in error, please indicate in your progress notes and/or discharge summary. __ lactic a 1.6 (WNL) MTDD
--- NOTE | 2018-07-20 12:33 | CDI ---
Documentation Clarification Form Date: 07/20/2018 12:00:05 PM From: MARLEN Mckenna; Ene [employer] Phone: If you have a question about this query, please contact [employer]ne [employer] at [phone] between 8am and 5pm. Admit Date: 07/14/2018 9:06:00 AM Patient Name: Brenda Ocampo Visit Number: [id number] Discharge Date: 07/16/2018 ATTENTION: The Clinical Documentation Specialists (CDI) and [facility] Coding Staff appreciate your assistance in clarifying documentation. Please respond to the clarification below the line at the bottom and electronically sign. The CDI & [facility] Coding staff will review the response and follow-up if needed. Please note: Queries are made part of the Legal Health Record. If you have any questions, please contact the author of this message via ITS. Martín Bradley MD Atelectasis is documented in the as x-ray finding on progress note dated 07/16 and consultation. Patient history/risk factors: COPD exacerbation, asthma, HTN, history of multiple cancers. Clinical Indicators: Cough and shortness of breath Radiology: Bilateral lower lobe atelectasis favored over pneumonia, correlate clinically. Please document confirmation of the diagnosis of atelectasis in your progress notes and/or discharge summary, along with its associated clinical indicators ( i.e., signs, symptoms, findings, treatments, monitoring). If this condition was ruled out or documented in error, please indicate in your progress notes and/or discharge summary. _pt had atelectasis on cxr MTDD
--- NOTE | 2018-07-20 19:41 | P.DS ---
Providers Date of admission: 07/14/18 09:06 Attending physician: Martín Masters MD Consults: 07/14/18 12:28 Consult Physician Urgent Consulting Provider: Italia Chowdhury Consult Reason/Comments: elevated tahir Do you want consulting provider notified?: Yes Placement Type Exists?: Yes 07/14/18 12:33 Consult Physician Urgent Consulting Provider: Kameron Boyle Consult Reason/Comments: possible copd Do you want consulting provider notified?: Yes Placement Type Exists?: Yes Primary care physician: Stated None Hospital Course: Discharged on 07/16/2018 diagnoses: Acute dyspnea with chest pain, rule out cardiac and pulmonary causes acute COPD exacerbation Elevated troponins non consistant with acute coronary syndrome as per cardiology team High d-dimer 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 Hawkins. Patient is status post trach. 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 Galvez's esophagus,. pt presents with shortness of her breath with patent trach in position. Patient states that she is developing shortness of breath over 1-2 days which was really badly one day prior to admission to the hospital. Associated with cough and some phlegm which she couldn't tell the color because this through the trach, however she states she has chronic cough. He should have some chest pain on both sides of the lateral chest, and patient states it feels like I pulled my muscle. And they get worse with increasing movements. pt has been evaluated by cardiology and pulmonary team , pt is back to her baseline with improved signs and symptoms. pt was cleared by cardiology and pulmonary teams for discharge. pt was dc on tapered steroids as she is not steroid dependant Pt was instructed about the problems and management plan and Pt verbalized understanding and acceptance Pt is found stable and can be discharged to the community but needs follow up as outpt. pt agreed with all appointments and their timing and state is going to f/u with them Discharge exam Gen.: Patient alert awake and oriented X 3, NOT IN DISTRESS CVS: s1-s2, RRR, no murmur CHEST:bilateral CTA, no wheezing or crepitation. trach in position Abdomen: Soft, no tenderness, no distention, positive bowel sounds Extremities: No leg edema or induration time spent : more than 35 min Patient Condition at Discharge: Stable Plan - Discharge Summary Discharge Rx Participant: No New Discharge Prescriptions: New Amoxic-Pot Clav 875-125Mg [Augmentin 875-125] 1 tab PO BID 3 Days #6 tab Budesonide [Pulmicort] 1 mg INHALATION RT-BID 30 Days #1 nebu Famotidine [Pepcid] 20 mg PO Q12HR #60 tab predniSONE 10 mg PO DIRECTED #18 tab Continue Metoprolol Succinate [Toprol XL] 25 mg PO DAILY Lisinopril 20 mg PO DAILY Gabapentin [Neurontin] 300 mg PO HS Albuterol Nebulized [Ventolin Nebulized] 1.25 mg INHALATION RT-QID PRN PRN Reason: Shortness Of Breath Changed HYDROcodone/APAP 10-325MG [Melvin 10-325] 1 tab PO Q6HR PRN 3 Days #12 PRN Reason: Pain Discharge Medication List Albuterol Nebulized [Ventolin Nebulized] 1.25 mg INHALATION RT-QID PRN 07/14/18 [History] Gabapentin [Neurontin] 300 mg PO HS 07/14/18 [History] Lisinopril 20 mg PO DAILY 07/14/18 [History] Metoprolol Succinate [Toprol XL] 25 mg PO DAILY 07/14/18 [History] Amoxic-Pot Clav 875-125Mg [Augmentin 875-125] 1 tab PO BID 3 Days #6 tab [Rx] Budesonide [Pulmicort] 1 mg INHALATION RT-BID 30 Days #1 nebu 07/16/18 [Rx] Famotidine [Pepcid] 20 mg PO Q12HR #60 tab 07/16/18 [Rx] HYDROcodone/APAP 10-325MG [Melvin 10-325] 1 tab PO Q6HR PRN 3 Days #12 07/16/18 [ Rx] predniSONE 10 mg PO DIRECTED #18 tab 07/16/18 [Rx] Follow up Appointment(s)/Referral(s): Coy Mckay MD [REFERRING] - 07/22/18 2:00 pm Ilya Crabtree MD [REFERRING] - 1 Week Kameron Boyle DO [Doctor of Osteopathic Medicine] - 07/28/18 10:15 am Patient Instructions/Handouts: COPD (Chronic Obstructive Pulmonary Disease) (DC ), Chronic Lung Disease and Infection Prevention (DC) Discharge Disposition: HOME WITH HOME HEALTH SERVICES
== END 2018-07-16 17:38 | disposition home health service (06) | DRG 192 ==
LOC: 3SCARD 09:06
PROVIDERS: ADMIT Internal Medicine; ATTEND Internal Medicine
DX: J44.1 Chronic obstructive pulmonary disease with (acute) exacerbation (principal); I08.1 Rheumatic disorders of both mitral and tricuspid valves; I10 Essential (primary) hypertension; I27.20 Pulmonary hypertension, unspecified; K21.9 Gastro-esophageal reflux disease without esophagitis; K22.70 Barrett's esophagus without dysplasia; R79.1 Abnormal coagulation profile; Z79.899 Other long term (current) drug therapy; Z83.3 Family history of diabetes mellitus; Z85.118 Personal history of other malignant neoplasm of bronchus and lung; Z87.891 Personal history of nicotine dependence; Z93.0 Tracheostomy status; Z88.5 Allergy status to narcotic agent; Z92.21 Personal history of antineoplastic chemotherapy; Z85.528 Personal history of other malignant neoplasm of kidney; Z92.3 Personal history of irradiation; Z85.21 Personal history of malignant neoplasm of larynx; Z82.49 Family history of ischemic heart disease and other diseases of the circulatory system
CPT/HCPCS: 71046; 80048; 80076; 83605; 84484; 85025; 93306; 93970; 94640

== ENCOUNTER 2018-10-22 10:04 | Inpatient (IN) | payer MEDICARE ==
[2018-10-22] MEDS ORDERED: HYDROmorphone 0.5 MG/0.5 ML SYRINGE IVP STA (10:21)
[2018-10-22] MEDS ORDERED: SODIUM CHLORIDE 0.9% 1,000 ML IV STA (10:21)
[2018-10-22] MEDS ORDERED: IPRATROPIUM-ALBUTEROL 3 ML NEB INHALATION STA (10:33)
[2018-10-22] MEDS ORDERED: ALBUTEROL NEBULIZED 2.5 MG/3 ML INHALATION STA (10:33)
--- NOTE | 2018-10-22 11:41 | XR ---
EXAMINATION TYPE: XR chest 2V DATE OF EXAM: 10/22/2018 COMPARISON: 07/07/2018 HISTORY: Chest pain and abdominal pain TECHNIQUE: Frontal and lateral views of the chest are obtained. FINDINGS: The tracheostomy tube and left-sided Mediport is unchanged. Minimal bibasilar subsegmental atelectasis is redemonstrated. Cardia mediastinal silhouette appears overall stable. No new focal co nsolidation. Minimal pulmonary vascular congestion is exaggerated by low lung volumes. Exaggerated th oracic kyphosis and mild multilevel degenerative changes of the thoracic spine are noted. IMPRESSION: 1. Mild pulmonary vascular congestion exaggerated by pulmonary hypoventilation. 2. Linear platelike subsegmental atelectasis.
[2018-10-22 12:16] LABS: Basophils % (A) 0 %; Eosinophils % (A) 0 %; HGB 12.5 gm/dL (11.4-16.0); Lymphocytes # (A) 0.9 k/uL (1.0-4.8); Lymphocytes % (A) 8 %; MCH 28.1 pg (25.0-35.0); MCHC 32.8 g/dL (31.0-37.0); MCV 85.6 fL (80.0-100.0); Mean Platelet Volume 7.2; Monocytes # (A) 0.9 k/uL (0-1.0); Monocytes % (A) 8 %; Neutrophils % (A) 82 %; Platelet Count 237 k/uL (150-450); RBC 4.44 m/uL (3.80-5.40); WBC 10.9 k/uL (3.8-10.6)
[2018-10-22 13:02] LABS: ALT 24 U/L (9-52); AST 18 U/L (14-36); Albumin 4.3 g/dL (3.5-5.0); Alkaline Phosphatase 153 U/L (38-126); Amylase 36 U/L (30-110); Anion Gap 12 mmol/L; Blood Urea Nitrogen 22 mg/dL (7-17); Calcium 10.2 mg/dL (8.4-10.2); Carbon Dioxide 25 mmol/L (22-30); Chloride 106 mmol/L (98-107); Creatine Kinase 25 U/L (30-135); Glucose 112 mg/dL (74-99); Lipase 35 U/L (23-300); Potassium 4.1 mmol/L (3.5-5.1); Sodium 143 mmol/L (137-145); Total Bilirubin 0.8 mg/dL (0.2-1.3)
[2018-10-22] MEDS ORDERED: FUROSEMIDE 10 MG/ML 4 ML VIAL IV STA (13:50)
[2018-10-22 14:18] LABS: Creatine Kinase MB 0.2 ng/mL (0.0-2.4); Troponin I <0.012 ng/mL (0.000-0.034)
[2018-10-22 15:10] LABS: Amorphous Sediment,Urine Few /hpf; Appearance,Urine Cloudy (Clear); Bacteria,Urine Few /hpf; Bilirubin,Urine Negative (Negative); Blood,Urine Trace (Negative); Color,Urine Yellow; Glucose,Urine (UA) Negative (Negative); Ketones,Urine 2+ (Negative); Leukocyte Esterase,Urine Large (Negative); Mucus,Urine Many /hpf; Nitrite,Urine Positive (Negative); Protein,Urine 1+ (Negative); RBC,Urine 8 /hpf (0-5); Specific Gravity,Urine 1.021 (1.001-1.035); Squamous Epithelial Cell,Urine 63 /hpf (0-4); Urobilinogen,Urine <2.0 mg/dL (<2.0); WBC,Urine 54 /hpf (0-5)
--- NOTE | 2018-10-22 15:18 | CT ---
EXAMINATION TYPE: CT abdomen pelvis w con DATE OF EXAM: 10/22/2018 COMPARISON: X-ray correlation of the chest same day HISTORY: 62-year-old female pain TECHNIQUE: Contiguous axial scanning of the abdomen and pelvis following administration of 100 ml Iso leoncio 300 IV contrast. Delayed images through the kidneys and coronal/sagittal reconstructions perform ed. CT DLP: 1405.7 mGycm Automated exposure control for dose reduction was used. FINDINGS: The patient refused to lay supine. Patient is in RPO position. Heart normal size without pericardial effusion. Trace left pleural effusion. Elevated left hemidiaphr agm. 1.3 cm right basilar nodule. Smaller anterior right basilar pulmonary nodules. Moderate-sized hiatal hernia. No focal liver lesions seen. Portal venous system appears patent. Mild prominence to the bile duct li betsy due to postcholecystectomy status. 1.4 cm soft tissue deposit within the subcutaneous adipose layer of the posterior right mid back, axi al image 32. 1.2 cm soft tissue deposit in the lateral right pararenal space, axial image 39. Adrenal glands and pancreas appear within normal limits. Spleen enlarged at 14.7 cm. Left kidney shows a few subcentimeter hypodense lesions space in the cortex, probably cysts but too s mall for accurate characterization. Large heterogeneously enhancing hypervascular mass lower pole right kidney measuring 5.3 cm No dilated small bowel, free fluid, or free air. Sigmoid diverticulosis without pericolonic inflammat ory change. Normal appendix with a 5 mm appendicolith noted. Bladder is urine distended. Uterus and ovaries are visualized. No abnormal fluid collection in the pe lvis or pelvic lymphadenopathy. Large destructive soft tissue lesion anterior left iliac bone measures 6.9 cm distorting the anterior iliac wing. Additional lytic lesions posterior left iliac bone measuring 2.6 cm. Diffuse lytic disea se is present throughout the spine. Subacute to chronic nonunited fracture right posterior 10th rib. Expansile callus involving the left anterior third rib. Lytic lesion involving the posterior aspect of the right T9 vertebral body and right-sided posterior elements and also extending to efface most of the spinal canal, axial image 9 and sagittal image 37. Minimal anterior wedging of vertebral bodies in the lower thoracic spine age-indeterminate. IMPRESSION: 1. 5.3 CM RCC LOWER POLE RIGHT KIDNEY UNTIL PROVEN OTHERWISE. 2. DIFFUSE LYTIC METASTATIC DISEASE THROUGHOUT. LARGE 6.9 CM DESTRUCTIVE LESION OF THE ANTERIOR LEFT ILIAC CREST. 3. THE LYTIC METASTASIS TO THE POSTERIOR RIGHT T9 VERTEBRAL BODY EXTENDS INTO THE RIGHT POSTERIOR YULIA MENTS AND EFFACES MOST OF THE SPINAL CANAL. UNDERLYING CORD COMPRESSION NOT EXCLUDED. CORRELATE WITH PATIENT'S SYMPTOMS. 4. METASTATIC RIGHT BASILAR PULMONARY NODULES MEASURING UP TO 1.3 CM AND A COUPLE SOFT TISSUE DEPOSIT S MEASURING 1.4 CM IN THE RIGHT POSTERIOR BACK SUBCUTANEOUS FAT AND RIGHT PARARENAL SPACE. 5. MODERATE-SIZED HIATAL HERNIA, ELEVATED LEFT HEMIDIAPHRAGM WITH TRACE LEFT PLEURAL EFFUSION, SIGMOI D DIVERTICULOSIS.
[2018-10-22] MEDS ORDERED: DEXAMETHASONE SOD PHOSPHATE 10 MG/ML 1 ML VIAL IV STA (15:24)
[2018-10-22] MEDS ORDERED: cefTRIAXone IN SWFI 1,000 MG/10 ML SYRINGE IVP STA (15:24)
[2018-10-22] MEDS ORDERED: NALOXONE 0.4 MG/ML 1 ML VIAL IV PRN (15:33)
--- NOTE | 2018-10-22 15:37 | ED ---
General Adult HPI - General Chief complaint: Abdominal Pain Stated complaint: ABDOMINAL PAIN Time Seen by Provider: 10/22/18 10:20 Source: EMS Mode of arrival: EMS Limitations: no limitations - Related Data Home Medications Medication Instructions Recorded Confirmed Albuterol Nebulized [Ventolin 3.75 mg INHALATION RT-QID PRN 07/14/18 10/22/18 Nebulized] Gabapentin [Neurontin] 300 mg PO HS 07/14/18 10/22/18 Lisinopril 20 mg PO DAILY 07/14/18 10/22/18 Metoprolol Succinate [Toprol XL] 25 mg PO DAILY 07/14/18 10/22/18 Previous Rx's Medication Instructions Recorded Budesonide [Pulmicort] 1 mg INHALATION RT-BID 30 Days #1 07/16/18 nebu Famotidine [Pepcid] 20 mg PO Q12HR #60 tab 07/16/18 HYDROcodone/APAP 10-325MG [Cavalier 1 tab PO Q6HR PRN 3 Days #12 07/16/18 10-325] Allergies Allergy/AdvReac Type Severity Reaction Status Date / Time morphine Allergy Unknown Verified 10/22/18 10:27 Review of Systems ROS Statement: Those systems with pertinent positive or pertinent negative responses have been documented in the HPI. ROS Other: All systems not noted in ROS Statement are negative. Past Medical History Past Medical History: Asthma, Cancer, COPD, GERD/Reflux, Hypertension, Osteoarthritis (OA), Pneumonia, Renal Disease Additional Past Medical History / Comment(s): 2006 cancerous mass wrapped around vocal cords-treated with chemo/radiation, 2013 R lung cancer treated with chemo/radiation, 10/2016 R kidney cancer with surgery, trach d/t scar tissue obstructing airflow, neuropathies d/t chemo/radiation, bronchitis, roa's es ophagus, hiatal hernia, generalized arthrtitis multiple joints. History of Any Multi-Drug Resistant Organisms: None Reported Additional Past Surgical History / Comment(s): 10/2016 R kidney cryosurgery d/t cancer, bronchoscopies, EGDs, colonoscopies, tracheostomy, mediport. Past Anesthesia/Blood Transfusion Reactions: No Reported Reaction, Motion Sickness Past Psychological History: No Psychological Hx Reported Smoking Status: Former smoker - Past Family History Mother Family Medical History: Coronary Artery Disease (CAD), Diabetes Mellitus Additional Family Medical History / Comment(s): Mother of sepsis at the age of 62 yrs. She had heart disease. Father Family Medical History: Coronary Artery Disease (CAD), Myocardial Infarction (TX) Additional Family Medical History / Comment(s): Father had multiple MIs and of a TX at the age of 59yrs. General Exam Limitations: no limitations Course Vital Signs 10/22/18 10/22/18 10/22/18 10:07 10:22 11:27 Temperature 99.8 F H Pulse Rate 124 H 125 H 124 H Respiratory 28 H 26 H Rate Blood Pressure 172/111 156/107 O2 Sat by Pulse 92 L 93 L Oximetry 10/22/18 11:45 Temperature Pulse Rate 128 H Respiratory Rate Blood Pressure O2 Sat by Pulse Oximetry EKG Findings - EKG Comments: EKG Findings:: Sinus tachycardia, occasional PVC, rate of 126, TX interval 132, QRS duration 60, QTC [address] segment elevation Medical Decision Making - Medical Decision Making 62-year-old female history limited secondary to tracheostomy. Complaining of abdominal pain back pain and dyspnea. Patient has decreased air entry bilaterally with wheezing and mild stridor. Tracheostomy is clean, she's given nebulized to be drawn Atrovent. Chest x-ray shows concern for congestion, no focal pneumonia. Mild leukocytosis 10.5, hemoglobin 12.4 which is stable, normal CMP, influenza negative, troponin negative, urinalysis consistent with UTI, culture pending, started on antibiotics. CT abdomen very concerning, showing right renal mass with history of renal cell carcinoma, there is multiple metastatic lesions and lung nodule. Patient will be admitted, case discussed with Dr. Hicks - Lab Data Result diagrams: 10/22/18 11:50 10/22/18 11:50 Lab Results 10/22/18 10/22/18 10/22/18 Range/Units 10:48 11:50 11:50 WBC 10.9 H (3.8-10.6) k/uL RBC 4.44 (3.80-5.40) m/uL Hgb 12.5 (11.4-16.0) gm/dL Hct 38.0 (34.0-46.0) % MCV 85.6 (80.0-100.0) fL MCH 28.1 (25.0-35.0) pg MCHC 32.8 (31.0-37.0) g/dL RDW 15.0 (11.5-15.5) % Plt Count 237 (150-450) k/uL Neutrophils % 82 % Lymphocytes % 8 % Monocytes % 8 % Eosinophils % 0 % Basophils % 0 % Neutrophils # 9.0 H (1.3-7.7) k/uL Lymphocytes # 0.9 L (1.0-4.8) k/uL Monocytes # 0.9 (0-1.0) k/uL Eosinophils # 0.0 (0-0.7) k/uL Basophils # 0.0 (0-0.2) k/uL Sodium 143 (137-145) mmol/L Potassium 4.1 (3.5-5.1) mmol/L Chloride 106 (98-107) mmol/L Carbon Dioxide 25 (22-30) mmol/L Anion Gap 12 mmol/L BUN 22 H (7-17) mg/dL Creatinine 0.57 (0.52-1.04) mg/dL Est GFR (CKD-EPI)AfAm >90 (>60 ml/min/1.73 sqM) Est GFR (CKD-EPI)NonAf >90 (>60 ml/min/1.73 sqM) Glucose 112 H (74-99) mg/dL Plasma Lactic Acid Moose (0.7-2.0) mmol/L Calcium 10.2 (8.4-10.2) mg/dL Total Bilirubin 0.8 (0.2-1.3) mg/dL AST 18 (14-36) U/L ALT 24 (9-52) U/L Alkaline Phosphatase 153 H (38-126) U/L Creatine Kinase 25 L (30-135) U/L CK-MB (CK-2) (0.0-2.4) ng/mL Troponin I (0.000-0.034) ng/mL Total Protein 7.0 (6.3-8.2) g/dL Albumin 4.3 (3.5-5.0) g/dL Amylase 36 (30-110) U/L Lipase 35 (23-300) U/L Urine Color Urine Appearance (Clear) Urine pH (5.0-8.0) Ur Specific [place] (1.001-1.035) Urine Protein (Negative) Urine Glucose (UA) (Negative) Urine Blood (Negative) Urine Nitrite (Negative) Urine Bilirubin (Negative) Urine Urobilinogen (<2.0) mg/dL Ur Leukocyte Esterase (Negative) Urine RBC (0-5) /hpf Urine WBC (0-5) /hpf Ur Squamous Epith Cells (0-4) /hpf Amorphous Sediment (None) /hpf Urine Bacteria (None) /hpf Urine Mucus (None) /hpf Influenza Type A RNA Not Detected (Not Detectd) Influenza Type B (PCR) Not Detected (Not Detectd) 10/22/18 10/22/18 10/22/18 Range/Units 11:50 13:21 14:50 WBC (3.8-10.6) k/uL RBC (3.80-5.40) m/uL Hgb (11.4-16.0) gm/dL Hct (34.0-46.0) % MCV (80.0-100.0) fL MCH (25.0-35.0) pg MCHC (31.0-37.0) g/dL RDW (11.5-15.5) % Plt Count (150-450) k/uL Neutrophils % % Lymphocytes % % Monocytes % % Eosinophils % % Basophils % % Neutrophils # (1.3-7.7) k/uL Lymphocytes # (1.0-4.8) k/uL Monocytes # (0-1.0) k/uL Eosinophils # (0-0.7) k/uL Basophils # (0-0.2) k/uL Sodium (137-145) mmol/L Potassium (3.5-5.1) mmol/L Chloride (98-107) mmol/L Carbon Dioxide (22-30) mmol/L Anion Gap mmol/L BUN (7-17) mg/dL Creatinine (0.52-1.04) mg/dL Est GFR (CKD-EPI)AfAm (>60 ml/min/1.73 sqM) Est GFR (CKD-EPI)NonAf (>60 ml/min/1.73 sqM) Glucose (74-99) mg/dL Plasma Lactic Acid Moose 1.4 (0.7-2.0) mmol/L Calcium (8.4-10.2) mg/dL Total Bilirubin (0.2-1.3) mg/dL AST (14-36) U/L ALT (9-52) U/L Alkaline Phosphatase (38-126) U/L Creatine Kinase (30-135) U/L CK-MB (CK-2) 0.2 (0.0-2.4) ng/mL Troponin I <0.012 (0.000-0.034) ng/mL Total Protein (6.3-8.2) g/dL Albumin (3.5-5.0) g/dL Amylase (30-110) U/L Lipase (23-300) U/L Urine Color Yellow Urine Appearance Cloudy H (Clear) Urine pH 6.0 (5.0-8.0) Ur Specific [place] 1.021 (1.001-1.035) Urine Protein 1+ H (Negative) Urine Glucose (UA) Negative (Negative) Urine Blood Trace H (Negative) Urine Nitrite Positive H (Negative) Urine Bilirubin Negative (Negative) Urine Urobilinogen <2.0 (<2.0) mg/dL Ur Leukocyte Esterase Large H (Negative) Urine RBC 8 H (0-5) /hpf Urine WBC 54 H (0-5) /hpf Ur Squamous Epith Cells 63 H (0-4) /hpf Amorphous Sediment Few H (None) /hpf Urine Bacteria Few H (None) /hpf Urine Mucus Many H (None) /hpf Influenza Type A RNA (Not Detectd) Influenza Type B (PCR) (Not Detectd) Disposition Clinical Impression: COPD with exacerbation, Renal mass, UTI (urinary tract infection) Disposition: HOME SELF-CARE Condition: Serious Is patient prescribed a controlled substance at d/c from ED?: No Referrals: Coy Mckay MD [Primary Care Provider] - 1-2 days Decision to Admit Reason: Admit from EC Decision Date: 10/22/18 Decision Time: 14:45
[2018-10-22] MEDS ORDERED: ALPRAZolam 0.5 MG TAB PO STA (16:52)
[2018-10-22] MEDS ORDERED: ALPRAZolam 0.5 MG TAB PO PRN (16:53)
--- NOTE | 2018-10-22 16:54 | P.HPIM ---
History of Present Illness This is a pleasant 62 years old female with past medical history of COPD, GERD, hypertension, osteoarthritis, pneumonia, asthma. She is a patient of [facility]. This time she presents because of midthoracic back pain, for 3 weeks duration. Patient was in this hospital last June 2018 for COPD exacerbation, about cou ple weeks after that patient was starting complaining of from left lower leg weakness, her thinks sure back pain started out that time by the patient thinks it was later on. However that time she saw her oncologist for send her for bonus count because he was inspection of back lesion, however as per patient canceled her test by herself. Patient reports she she is having back pain in the upper and middle part of the thorax mainly in the middle part, was also some pain on the lower back. The pain is worse with coughing. Patient also complaining of from weakness on her left leg since last July, about 3 months later and that this in last September she is starts having weakness in her right leg, arm that time her back pain got really severe, to the point that she decided to come to the emergency room today. Also reports also difficulty in urination for the last 3 weeks with hesitancy, but no dysuria, associated with coughing with green phlegm for about one month, whenever she coughs she has pain in her back and belly. No abdominal pain and abdominal exam looks benign. Patient has history of 3 cancers, including laryngeal cancer, she is status post tracheostomy, history of lung cancer and kidney cancer, she is status post- chemoradiotherapy. she is follow-up with oncologist as an outpatient every 6 months Patient was not eating and drinking well for the last 2 weeks. She is tachycardic, with low-grade fever, tachypneic, she is saturating 93% on room air. Blood pressure 156/107. WBC is 10.9 K, creatinine 0.5, sodium potassium within normal limits. Liver enzymes are not elevated. Troponin is negative. UA suggestive of infection. Influenza is negative. Abdomen, pelvis CT done in the emergency room with IV contrast: 5.3 cm right lower kidney. Mul tiple diffuse metastatic disease, large 6.9 dissected lesion in the anterior left iliac crest. Metastatic disease to the spine, spinal cord compression is not excluded. Pulmonary nodule of 1.3 cm in the right lower lung. Hiatus hernia Chest x-ray: Mild pulmonary congestion. EKG sinus tachycardia at 126 Review of Systems CONSTITUTIONAL: No fever, no malaise, no fatigue. HEENT: No recent visual problems or hearing problems. Denied any sore throat. CARDIOVASCULAR: No orthopnea, PND, no palpitations, no syncope. PULMONARY: No shortness of breath, no cough, no hemoptysis. GASTROINTESTINAL: No diarrhea, no nausea, no vomiting, no abdominal pain. Normoactive bowel sounds. NEUROLOGICAL: No headaches, no numbness. HEMATOLOGICAL: Denies any bleeding or petechiae. GENITOURINARY: Denies any burning micturition, frequency, or urgency. MUSCULOSKELETAL/RHEUMATOLOGICAL: Denies any joint pain, swelling, or any muscle pain. ENDOCRINE: Denies any polyuria or polydipsia. Past Medical History Past Medical History: Asthma, Cancer, COPD, GERD/Reflux, Hypertension, Osteoarthritis (OA), Pneumonia, Renal Disease Additional Past Medical History / Comment(s): 2006 cancerous mass wrapped around vocal cords-treated with chemo/radiation, 2013 R lung cancer treated with chemo/radiation, 10/2016 R kidney cancer with surgery, trach d/t scar tissue obstructing airflow, neuropathies d/t chemo/radiation, bronchitis, roa's esophagus, hiatal hernia, generalized arthrtitis multiple joints. History of Any Multi-Drug Resistant Organisms: None Reported Additional Past Surgical History / Comment(s): 10/2016 R kidney cryosurgery d/t cancer, bronchoscopies, EGDs, colonoscopies, tracheostomy, mediport. Past Anesthesia/Blood Transfusion Reactions: No Reported Reaction, Motion Sickness Past Psychological History: No Psychological Hx Reported Smoking Status: Former smoker - Past Family History Mother Family Medical History: Coronary Artery Disease (CAD), Diabetes Mellitus Additional Family Medical History / Comment(s): Mother of sepsis at the age of 62 yrs. She had heart disease. Father Family Medical History: Coronary Artery Disease (CAD), Myocardial Infarction (CT) Additional Family Medical History / Comment(s): Father had multiple MIs and of a CT at the age of 59yrs. Medications and Allergies Home Medications Medication Instructions Recorded Confirmed Type Albuterol Nebulized [Ventolin 3.75 mg INHALATION RT-QID PRN 07/14/18 10/22/18 History Nebulized] Gabapentin [Neurontin] 300 mg PO HS 07/14/18 10/22/18 History Lisinopril 20 mg PO DAILY 07/14/18 10/22/18 History Metoprolol Succinate [Toprol XL] 25 mg PO DAILY 07/14/18 10/22/18 History Budesonide [Pulmicort] 1 mg INHALATION RT-BID 30 Days #1 07/16/18 10/22/18 Rx nebu Famotidine [Pepcid] 20 mg PO Q12HR #60 tab 07/16/18 10/22/18 Rx HYDROcodone/APAP 10-325MG [Bowers 1 tab PO Q6HR PRN 3 Days #12 07/16/18 10/22/18 Rx 10-325] Allergies Allergy/AdvReac Type Severity Reaction Status Date / Time morphine Allergy Unknown Verified 10/22/18 10:27 Physical Exam Vitals: Vital Signs Temp Pulse Resp BP Pulse Ox 10/22/18 11:45 128 H 10/22/18 11:27 124 H 10/22/18 10:22 125 H 26 H 156/107 93 L 10/22/18 10:07 99.8 F H 124 H 28 H 172/111 92 L Intake and Output 10/22/18 10/22/18 10/22/18 06:59 14:59 22:59 Other: Weight 83.007 kg GENERAL: The patient is alert and oriented x3, not in any acute distress. Well developed, well nourished. HEENT: Pupils are round and equally reacting to light. EOMI. No scleral icterus. No conjunctival pallor. Normocephalic, atraumatic. No pharyngeal erythema. No thyromegaly. CARDIOVASCULAR: S1 and S2 present. No murmurs, rubs, or gallops. PULMONARY: Chest is clear to auscultation, no wheezing or crackles. ABDOMEN: Soft, nontender, nondistended, normoactive bowel sounds. No palpable organomegaly. -MUSCULOSKELETAL: No joint swelling or deformity. Tenderness in the middle of the back, most pronounced in the middle of the thoracic region. EXTREMITIES: No cyanosis, clubbing, or pedal edema. -NEUROLOGICAL: Gross neurological examination did not reveal any focal deficits. Weakness in both lower extremity, she can raise her both legs for have fluid above bed and against gravity. We'll sensation both lower extremity. SKIN: No rashes. Results CBC & Chem 7: 10/22/18 11:50 10/22/18 11:50 Labs: Abnormal Lab Results - Last 24 Hours (Table) 10/22/18 10/22/18 10/22/18 Range/Units 11:50 11:50 14:50 WBC 10.9 H (3.8-10.6) k/uL Neutrophils # 9.0 H (1.3-7.7) k/uL Lymphocytes # 0.9 L (1.0-4.8) k/uL BUN 22 H (7-17) mg/dL Glucose 112 H (74-99) mg/dL Alkaline Phosphatase 153 H (38-126) U/L Creatine Kinase 25 L (30-135) U/L Urine Appearance Cloudy H (Clear) Urine Protein 1+ H (Negative) Urine Ketones 2+ H (Negative) Urine Blood Trace H (Negative) Urine Nitrite Positive H (Negative) Ur Leukocyte Esterase Large H (Negative) Urine RBC 8 H (0-5) /hpf Urine WBC 54 H (0-5) /hpf Ur Squamous Epith Cells 63 H (0-4) /hpf Amorphous Sediment Few H (None) /hpf Urine Bacteria Few H (None) /hpf Urine Mucus Many H (None) /hpf Assessment and Plan Assessment: Acute Back pain systemic inflammatory response possible sepsis due to UTI or other Multiple metastatic disease including the left iliac crest and verberal column with possible compression of the spinal cord pulmonary nodule Large hiatal hernia History of COPD History of GERD Essential hypertension History of posterior arthritis Plan: This is a pleasant 62 years old female who presents with acute back pain and possible spinal cord compression. Continue with steroids, IV fluids, IV antibiotics, called orthopedic consult. Do MRI of the spine. Start Decadron. The bladder scan Labs and medication were reviewed.. Continue same treatment. Continue with symptomatic treatment. Resume home medication. Monitor lytes and vitals. DVT and GI prophylaxis. Further recommendations of the clinical course of the patient DVT prophylaxis: Not anticoagulation for possible spinal cord lesion that needing therapy GI Prophylaxis: Devan I discussed the case with the patient and , all their questions answered to their satisfaction Prognosis is guarded
[2018-10-22] MEDS: SODIUM CHLORIDE 0.9% 1,000 ML IV SCH (18:17)
[2018-10-22] MEDS: HYDROmorphone 0.5 MG/0.5 ML SYRINGE IVP PRN ×2 (18:18→23:21)
[2018-10-22] MEDS: FAMOTIDINE 20 MG/2 ML VIAL IV SCH (19:44)
[2018-10-22] MEDS: IPRATROPIUM-ALBUTEROL 3 ML NEB INHALATION PRN (21:05)
[2018-10-22] MEDS: DEXAMETHASONE SOD PHOSPHATE 4 MG/ML 1 ML VIAL IV SCH (23:13)
[2018-10-23] MEDS: SODIUM CHLORIDE 0.9% 1,000 ML IV SCH ×2 (04:22→07:58)
[2018-10-23] MEDS: DEXAMETHASONE SOD PHOSPHATE 4 MG/ML 1 ML VIAL IV SCH ×2 (05:13→12:05)
[2018-10-23] MEDS: HYDROmorphone 0.5 MG/0.5 ML SYRINGE IVP PRN ×4 (05:31→16:08)
[2018-10-23] MEDS: IPRATROPIUM-ALBUTEROL 3 ML NEB INHALATION PRN ×2 (08:54→12:50)
[2018-10-23] MEDS: FAMOTIDINE 20 MG/2 ML VIAL IV SCH (09:06)
[2018-10-23] MEDS: guaiFENesin-Coden 100-10MG/5ML 10 ML CUP PO PRN ×2 (10:32→16:08)
--- NOTE | 2018-10-23 12:16 | P.CNOR ---
History of Present Illness - [facility] Consult date: 10/23/18 Requesting physician: Martín E Sonam Consult reason: back pain (Thoracic back pain; Metastatic disease to the T9 gilbert tebral body with possible cord compression, and metastatic disease to the left iliac crest) History of present illness: Patient is a very pleasant 62-year-old female with a significant medical history including laryngeal carcinoma, history of lung cancer, and history of kidney cancer. She presented to the emergency department yesterday for further treatment evaluation for significantly thoracic back pain. CT the abdomen and pelvis were performed at that time which did show evidence of apparent mass on the right at T9. Also found most likely metastatic disease to the left iliac crest. Patient has been following with her oncologist. Patient states she was scheduled to undergo further testing approximately 3 months ago with imaging but canceled this imaging. She states for 3 months she experienced left lower extremity radiculopathy symptoms which have finally subsided. She then started to experience symptoms in the right lower extremity. She states those symptoms have now radiated up her leg and are centered at her thoracic spine. She is not currently complaining of significant lower extremity radiculopathy bilaterally. She does have difficulty with ambulation. An MRI of the thoracic spine was ordered yesterday but was unable to be performed at that time. She scheduled for an MRI today at 10:00 AM. Patient does have a history of a tracheostomy. Patient denies specific injury. Consultation was placed following the CT report for concern for possible metastatic disease and possible spine metastases with cord compression. Patient is also being treated for urinary tract infection. Past Medical History Past Medical History: Asthma, Cancer, COPD, GERD/Reflux, Hypertension, Osteoarthritis (OA), Pneumonia, Renal Disease Additional Past Medical History / Comment(s): 2006 cancerous mass wrapped around vocal cords-treated with chemo/radiation, 2013 R lung cancer treated with chemo/radiation, 10/2016 R kidney cancer with surgery, trach d/t scar tissue obstructing airflow, neuropathies d/t chemo/radiation, bronchitis, roa's esophagus, hiatal hernia, generalized arthrtitis multiple joints. History of Any Multi-Drug Resistant Organisms: None Reported Additional Past Surgical History / Comment(s): 10/2016 R kidney cryosurgery d/t cancer, bronchoscopies, EGDs, colonoscopies, tracheostomy, mediport. Past Anesthesia/Blood Transfusion Reactions: No Reported Reaction, Motion Sickness Past Psychological History: No Psychological Hx Reported Additional Psychological History / Comment(s): Pt resides with her spouse, Dhiraj. She uses no assistive device. She no longer drives, her spouse can take her to [employer]. Smoking Status: Former smoker Past Alcohol Use History: None Reported Additional Past Alcohol Use History / Comment(s): Pt started smoking in 1986 and quit in 2015 Past Drug Use History: None Reported - Past Family History Mother Family Medical History: Coronary Artery Disease (CAD), Diabetes Mellitus Additional Family Medical History / Comment(s): Mother of sepsis at the age of 62 yrs. She had heart disease. Father Family Medical History: Coronary Artery Disease (CAD), Myocardial Infarction ([place]) Additional Family Medical History / Comment(s): Father had multiple MIs and of a IN at the age of 59yrs. Medications and Allergies Home Medications Medication Instructions Recorded Confirmed Type Albuterol Nebulized [Ventolin 3.75 mg INHALATION RT-QID PRN 07/14/18 10/22/18 History Nebulized] Gabapentin [Neurontin] 300 mg PO HS 07/14/18 10/22/18 History Lisinopril 20 mg PO DAILY 07/14/18 10/22/18 History Metoprolol Succinate [Toprol XL] 25 mg PO DAILY 07/14/18 10/22/18 History Budesonide [Pulmicort] 1 mg INHALATION RT-BID 30 Days #1 07/16/18 10/22/18 Rx nebu Famotidine [Pepcid] 20 mg PO Q12HR #60 tab 07/16/18 10/22/18 Rx HYDROcodone/APAP 10-325MG [Elmore 1 tab PO Q6HR PRN 3 Days #12 07/16/18 10/22/18 Rx 10-325] Allergies Allergy/AdvReac Type Severity Reaction Status Date / Time morphine Allergy Unknown Verified 10/22/18 10:27 Physical Examination Physical exam: Patient is awake, alert, and oriented 3 Vital signs stable Good chest excursion with deep inspiration and expiration Abdomen soft nontender Examination of lumbar spine reveals skin is intact with no abrasions, serrations, or bruises; no erythema, purulence or signs of infection Significant pain with palpation along the midline of the mid to lower thoracic spine Dorsiflexion, plantarflexion, and extensor hallucis longus positive sustained bilaterally Lower extremity strength generally weaker bilaterally 4 beats of clonus left lower extremity No lower extremity hyperreflexia bilaterally Patient is unable to lift legs independently off the bed No signs or symptoms of DVT; no calf pain No pain with internal and external rotation of the hips bilaterally Neurovascularly intact Results Pertinent studies: CT the abdomen and pelvis: Lytic metastasis to the posterior right T9 vertebral body extending into the right posterior elements and effacing most of the spinal canal with underlying cord compression excluded; diffuse lytic metastatic diseas e throughout with a large 6.9 cm destructive lesion of the anterior left iliac crest; 5.3 cm renal cell carcinoma of the right lower pole of the kidney until proven otherwise; metastatic right basilar pulmonary nodules; carpal soft tissue deposits in the right posterior back subcutaneous fat and right pararenal space - Labs Labs: Abnormal Lab Results - Last 24 Hours (Table) 10/22/18 10/22/18 10/22/18 Range/Units 11:50 11:50 14:50 WBC 10.9 H (3.8-10.6) k/uL Neutrophils # 9.0 H (1.3-7.7) k/uL Lymphocytes # 0.9 L (1.0-4.8) k/uL BUN 22 H (7-17) mg/dL Glucose 112 H (74-99) mg/dL Alkaline Phosphatase 153 H (38-126) U/L Creatine Kinase 25 L (30-135) U/L Urine Appearance Cloudy H (Clear) Urine Protein 1+ H (Negative) Urine Ketones 2+ H (Negative) Urine Blood Trace H (Negative) Urine Nitrite Positive H (Negative) Ur Leukocyte Esterase Large H (Negative) Urine RBC 8 H (0-5) /hpf Urine WBC 54 H (0-5) /hpf Ur Squamous Epith Cells 63 H (0-4) /hpf Amorphous Sediment Few H (None) /hpf Urine Bacteria Few H (None) /hpf Urine Mucus Many H (None) /hpf Microbiology - Last 24 Hours (Table) 10/22/18 14:50 Urine Culture - Preliminary Urine,Voided H & H 10/22/18 Range/Units 11:50 Hgb 12.5 (11.4-16.0) gm/dL Hct 38.0 (34.0-46.0) % Result Diagrams: 10/22/18 11:50 10/22/18 11:50 Assessment and Plan Assessment: Assessment: Intractable thoracic back pain Lytic metastasis to the posterior right T9 vertebral body Lytic metastatic disease to the anterior left iliac crest Positive clonus left lower extremity Renal cell carcinoma right lower pole of the kidney until proven otherwise Metastatic right basilar pulmonary nodules History of laryngeal carcinoma, lung cancer, and kidney cancer History of tracheostomy placement (1) Mass of thoracic vertebra Current Visit: Yes Status: Acute Code(s): R22.2 - LOCALIZED SWELLING, MASS AND LUMP, TRUNK SNOMED Code(s): 035048711 (2) Thoracic back pain Current Visit: Yes Status: Acute Code(s): M54.6 - PAIN IN THORACIC SPINE SNOMED Code(s): 778580243 (3) Pulmonary nodules Current Visit: Yes Status: Acute Code(s): R91.8 - OTHER NONSPECIFIC ABNORMAL FINDING OF LUNG FIELD SNOMED Code(s): 245716961 (4) Hx of carcinoma in situ of larynx Current Visit: Yes Status: Acute Code(s): Z86.008 - PERSONAL HISTORY OF IN- SITU NEOPLASM OF OTHER SITE SNOMED Code(s): 943348898 (5) History of tracheostomy Current Visit: Yes Status: Acute Code(s): Z98.890 - OTHER SPECIFIED POSTPROCEDURAL STATES SNOMED Code(s): 403424238 (6) History of lung cancer Current Visit: Yes Status: Acute Code(s): Z85.118 - PERSONAL HISTORY OF MALIGNANT NEOPLASM OF BRONCHUS AND LUNG SNOMED Code(s): 374129330 (7) History of kidney cancer Current Visit: Yes Status: Acute Code(s): Z85.528 - PERSONAL HISTORY OF OTHER MALIGNANT NEOPLASM OF KIDNEY SNOMED Code(s): 946272753 (8) Renal mass Current Visit: Yes Status: Acute Code(s): N28.89 - OTHER SPECIFIED DISORDERS OF KIDNEY AND URETER SNOMED Code(s): 840552970 Plan: Plan: 1. After further discussion with the patient, physical examination of the patient, and reviewing of imaging, will currently plan to wait for MRI results of the thoracic spine before proceeding forward with an appropriate plan of care, however, patient has been discussed in detail with Dr. Praveen Montero who feels the patient will most likely need transfer to a tertiary facility but this transfer does not emergently need to be done at this time. Thoracic MRI is s cheduled for today, 10/23/2018, at 10:00 AM. Plan of care will also be discussed with medicine who may begin the transfer process. 2. Patient will continue to be seeing examined by medicine 3. Patient currently waiting for consultation with Dr. Patricia in oncology, Dr. Rankin in infectious disease, and Dr. Palomino in pulmonology. Time with Patient: Greater than 30 (Including obtaining history, physical examination, reviewing of imaging, and dictation.)
[2018-10-23 12:34] VITALS: TEMP 98.3
[2018-10-23] MEDS ORDERED: ALPRAZolam 0.5 MG TAB PO STA (12:56)
[2018-10-23] MEDS ORDERED: HYDROmorphone 0.5 MG/0.5 ML SYRINGE IVP STA (12:57)
--- NOTE | 2018-10-23 14:22 | P.CNPUL ---
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 Lung cancer was diagnosed in 2013 and she was treated with chemo and radiation. She also has history of renal cancer in 2017 status post cryotherapy without chemo or radiation. Other history includes Roa's esophagus, hypertension, osteoarthritis, previous episodes of pneumonia. She usually follows with oncologist from the [facility] in [place], Dr. Ilya Crabtree, she thinks she had a recent CT chest done a month and a half ago at the [facility] in [place]. We recently met this patient in June when she was hospitalized at this hospital for acute exacerbation of COPD. Following that visit patient started seeing Dr. Boyle in the pulmonary clinic. She is coming into the hospital on 10/22/2018 for evaluation of severe back pain at the level mid back, her pain has been crossing over from the left side to the right side and traveling up the right side of the torso to her neck area. She did have some fever and chills, she felt that she was retaining more fluid, and did have some urinary retention issues as well. Chest x-ray showed mild pulmonary vessel congestion, ear p latelet subsegmental atelectasis, CT of abdomen and pelvis was completed and showed renal cell carcinoma measuring 5.3 cm on the pole of the right kidney, until proven otherwise. Diffuse lytic metastatic disease throughout, large 6.9 cm destructive lesion of the anterior left iliac crest, the lytic metastasis to the posterior right T9 vertebral body extending into the right posterior elements and effacing most of the spinal canal. . Also showed metastatic right basilar pulmonary nodules up to 1.3 cm in a couple soft tissue deposits measuring 1.4 cm in the right posterior back cutaneous fat and right pararenal space. There was elevated left hemidiaphragm with trace pleural effusion on the left. Lab work did not show any significant leukocytosis, white blood cell count was 10.9, hemoglobin is 12.5, electrolytes are within normal limits, BUN was 22, creatinine is 0.57 plasma lactic acid was 1.0, AST and ALT were 18 and 24 respectively, alkaline phosphatase was 153, troponin was negative, amylase and lipase were 36 and 35, urinalysis was infected, with large amount of leuks and nitrites, red blood cells, and white blood cells. Influenza was not detected. She was started on antibiotic coverage in the form of Rocephin, she was given a dose of IV Decadron in the emergency department, and maintenance dose of Decadron 4 mg every 6 hours, nebulized bronchodilators. Have a low-grad e fever on presentation, with a temp of 99.8 Fahrenheit, has been afebrile this morning, was tachycardic with a heart rate of 120 in the ER, even a liter of IV fluid, the last tachycardic, she is on 28% trach collar. She has a #6 cuffless Shiley trach, which she has had for the past 2 years. Review of Systems All systems: negative Constitutional: Denies chills, Denies fever Eyes: denies blurred vision, denies pain Ears, nose, mouth and throat: Denies headache, Denies sore throat Cardiovascular: Denies chest pain, Denies shortness of breath Respiratory: Reports dyspnea, Reports pain on inspiration, Denies cough Gastrointestinal: Denies abdominal pain, Denies diarrhea, Denies nausea, Denies vomiting Genitourinary: Denies dysuria, Denies hematuria Musculoskeletal: Reports limitation of motion, Denies myalgias Musculoskeletal: Integumentary: Denies pruritus, Denies rash Neurological: Denies numbness, Denies weakness Psychiatric: Denies anxiety, Denies depression Endocrine: Denies fatigue, Denies weight change Past Medical History Past Medical History: Asthma, Cancer, COPD, GERD/Reflux, Hypertension, Ost eoarthritis (OA), Pneumonia, Renal Disease Additional Past Medical History / Comment(s): 2006 cancerous mass wrapped around vocal cords-treated with chemo/radiation, 2013 R lung cancer treated with chemo/radiation, 10/2016 R kidney cancer with surgery, trach d/t scar tissue o bstructing airflow, neuropathies d/t chemo/radiation, bronchitis, roa's esophagus, hiatal hernia, generalized arthrtitis multiple joints. History of Any Multi-Drug Resistant Organisms: None Reported Additional Past Surgical History / Comment(s): 10/2016 R kidney cryosurgery d/t cancer, bronchoscopies, EGDs, colonoscopies, tracheostomy, mediport. Past Anesthesia/Blood Transfusion Reactions: No Reported Reaction, Motion Sickness Past Psychological History: No Psychological Hx Reported Additional Psychological History / Comment(s): Pt resides with her spouse, Dhiraj. She uses no assistive device. She no longer drives, her spouse can take her to [place]. Smoking Status: Former smoker Past Alcohol Use History: None Reported Additional Past Alcohol Use History / Comment(s): Pt started smoking in 1986 and quit in 2015 Past Drug Use History: None Reported - Past Family History Mother Family Medical History: Coronary Artery Disease (CAD), Diabetes Mellitus Additional Family Medical History / Comment(s): Mother of sepsis at the age of 62 yrs. She had heart disease. Father Family Medical History: Coronary Artery Disease (CAD), Myocardial Infarction (TX) Additional Family Medical History / Comment(s): Father had multiple MIs and of a TX at the age of 59yrs. Medications and Allergies Home Medications Medication Instructions Recorded Confirmed Type Albuterol Nebulized [Ventolin 3.75 mg INHALATION RT-QID PRN 07/14/18 10/22/18 History Nebulized] Gabapentin [Neurontin] 300 mg PO HS 07/14/18 10/22/18 History Lisinopril 20 mg PO DAILY 07/14/18 10/22/18 History Metoprolol Succinate [Toprol XL] 25 mg PO DAILY 07/14/18 10/22/18 History Budesonide [Pulmicort] 1 mg INHALATION RT-BID 30 Days #1 07/16/18 10/22/18 Rx nebu Famotidine [Pepcid] 20 mg PO Q12HR #60 tab 07/16/18 10/22/18 Rx HYDROcodone/APAP 10-325MG [[place] 1 tab PO Q6HR PRN 3 Days #12 07/16/18 10/22/18 Rx 10-325] Allergies Allergy/AdvReac Type Severity Reaction Status Date / Time morphine Allergy Unknown Verified 10/22/18 10:27 Physical Exam Vitals: Vital Signs Temp Pulse Pulse Resp BP BP Pulse Ox 03/08/19 09:18 100 10/23/18 08:54 100 10/23/18 08:00 98.1 F 110 H 18 148/92 94 L 10/23/18 03:25 98 F 114 H 20 161/78 93 L 10/23/18 00:00 98.9 F 120 H 20 145/85 95 10/22/18 21:15 116 H 10/22/18 21:05 120 H 10/22/18 20:00 99.2 F 129 H 20 147/81 96 10/22/18 17:15 99.7 F H 120 H 24 137/74 97 10/22/18 16:45 99.0 F 10/22/18 16:24 128 H 20 136/79 93 L 10/22/18 16:00 130 H 21 115/74 10/22/18 15:00 124 H 18 180/103 97 10/22/18 14:51 131 H 22 93 L Intake and Output 10/22/18 10/23/18 10/23/18 22:59 06:59 14:59 Output Total 400 Balance -400 Output: Urine 400 Other: Voiding Method Bedpan # Voids 1 0 Weight 84.7 kg GENERAL EXAM: Alert, pleasant, 62-year-old white female, on 28% trach collar, has a chronic tracheostomy, #6 cuffess Shiley trach, comfortable in no apparent distress. HEAD: Normocephalic/atraumatic. EYES: Normal reaction of pupils, equal size. Conjunctiva pink, sclera white. NOSE: Clear with pink turbinates. THROAT: No erythema or exudates. NECK: No masses, no JVD, no thyroid enlargement, no adenopathy. CHEST: No chest wall deformity. Symmetrical expansion. LUNGS: Equal air entry scattered wheezes CVS: Regular rate and rhythm, normal S1 and S2, no gallops, no murmurs, no rubs ABDOMEN: Soft, nontender. No hepatosplenomegaly, normal bowel sounds, no guardi ng or rigidity. EXTREMITIES: No clubbing, no edema, no cyanosis, 2+ pulses and upper and lower extremities. MUSCULOSKELETAL: Muscle strength and tone normal. SPINE: No scoliosis or deformity SKIN: No rashes CENTRAL NERVOUS SYSTEM: Alert and oriented -3. No focal deficits, tone is normal in all 4 extremities. PSYCHIATRIC: Alert and oriented -3. Appropriate affect. Intact judgment and insight. Results - Laboratory Findings CBC and BMP: 10/22/18 11:50 10/22/18 11:50 Abnormal lab findings: Abnormal Labs 10/22/18 10/22/18 10/22/18 11:50 11:50 14:50 WBC 10.9 H Neutrophils # 9.0 H Lymphocytes # 0.9 L BUN 22 H Glucose 112 H Alkaline Phosphatase 153 H Creatine Kinase 25 L Urine Appearance Cloudy H Urine Protein 1+ H Urine Ketones 2+ H Urine Blood Trace H Urine Nitrite Positive H Ur Leukocyte Esterase Large H Urine RBC 8 H Urine WBC 54 H Ur Squamous Epith Cells 63 H Amorphous Sediment Few H Urine Bacteria Few H Urine Mucus Many H - Diagnostic Findings Chest x-ray: report reviewed, image reviewed Additional studies: CT abdomen and pelvis Assessment and Plan Plan: Assessment: #1. Severe back pain limiting patient's breathing, chest x-ray showed mild pulmonary vessel congestion exaggerated the pulmonary hypoventilation and subsegmental atelectasis, no acute pulmonary process #2. 5.3 cm renal cell carcinoma on the lower pole of the right kidney seen on the CT abdomen and pelvis, onto proven otherwise #3. Diffuse lytic metastatic disease involving left iliac crest, with a large 6.9 cm destructive lesion, lytic metastasis of posterior right T9 vertebral body, standing into the right posterior elements and effacing most of the spinal canal, and on the CT abdomen and pelvis #4. Metastatic right basilar pulmonary nodules measuring up to 1.3 cm and soft tissue deposits in the right posterior subcutaneous fat and right perirenal space #4. Urinary tract infection #5. History of vocal cord cancer, status post chemotherapy and radiation in 2006, and placement of permanent tracheostomy #6. History of renal cell cancer, status post right kidney cryotherapy in 2013 #7. History of COPD with history of smoking, currently in remission #8. Chronic tracheostomy related to scar tissue obstructing airflow #9. History of right lung small cell cancer, locally advanced status post chemotherapy and radiation, patient follows with medical oncologist from [facility], and had a recent CT chest on month and a half ago, the findings are unknown to us at this time #10. Hypertension #11. Osteoarthritis Plan: Most of patient's record related to treatment for her small cell lung cancer, vocal cord cancer and renal cell carcinoma are at the [facility], patient has medical oncologist we will also is affiliated with [facility]. She apparently had a recent CT chest on month and a half ago, and the findings are unknown to us, and is coming in with severe back pain, findings of the CT abdomen and pelvis with multiple abnormal findings, including renal cell carcinoma, metastatic lytic lesions involving the left iliac crest, spine and some nodules in the lungs. We requested the records from the [facility], however and the patient would probably be served better by transferring to her treating oncologist and to her hospital from the [facility]. Transfer arrangements are in progress, and patient and the are agreeable. We will be happy to take care of her pulmonary needs once she is discharged, and patient can follow with Dr. Boyle. I performed a history & physical examination of the patient and discussed their management with my nurse practitioner, Aure Don. I reviewed the nurse practitioner's note and agree with the documented findings and plan of care. Lung sounds are positive for few scattered wheezes. The findings and the impression was discussed with the patient. I attest to the documentation by the nurse practitioner. Time with Patient: Greater than 30
--- NOTE | 2018-10-23 16:09 | MR ---
EXAMINATION TYPE: MR cspine/tspine/lspine wo con DATE OF EXAM: 10/23/2018 COMPARISON: CT 10/22/2018 HISTORY: Pain TECHNIQUE: Multiplanar, multisequence imaging of the cervical, thoracic, lumbar spine is performed wi thout IV contrast. FINDINGS: Diffuse marrow signal changes are present within the vertebral bodies, right humerus, ribs on T1-weig hted sequences, intermediate signal is heterogeneous consistent with metastatic disease. Pulmonary no dule is noted incidentally in the right upper lobe. There is a left pleural effusion greater than rig ht. Within the cervical spine there is no evident spinal stenosis or disc herniation. Thoracic spine at T6 there is a compression fracture with loss of height of approximately 50%. Local expansion of the left pedicle, soft tissue component results in moderate canal stenosis, some local m ass effect on the thoracic cord. No evident signal change within the cord however. T9 shows some loca l expansion of the pedicle on the right with mass effect on the spinal canal, mass effect on the thor acic cord. Some loss of height is also present T7, T8, there is a mild kyphosis. Lumbar spine shows no evident spinal stenosis, vertebral body height is maintained. There are mild de generative disc changes. The conus shows a normal appearance. IMPRESSION: Extensive metastatic disease. Local mass effect on the thoracic cord at T9 and T6 as desc ribed.
--- NOTE | 2018-10-23 16:26 | P.PN ---
Subjective Progress Note Date: 10/23/18 Principal diagnosis: Sepsis secondary to UTI Acute back pain/ metastatic lesions to left iliac crest and vertebral column with possible spinal cord compression This is a pleasant 62 years old female with past medical history of COPD, GERD, hypertension, osteoarthritis, pneumonia, asthma, presents because of midthoracic back pain, for 3 weeks duration. The pain is worse with coughing, associated with weakness on her left leg since last July, in September she started havin g weakness in her right leg. Also reports difficulty in urination for the last 3 weeks with hesitancy, but no dysuria. Patient has history of 3 cancers, including laryngeal cancer, she is status post tracheostomy, history of lung cancer and kidney cancer, she is status post- chemoradiotherapy. she is following-up with oncologist as an outpatient every [address] of abdomen and pelvis done in ED shows 5.3 cm RCC right kidney; diffuse lytic metastatic disease throughout with large 6.9 cm destructive lesion of anterior left iliac crest; lytic metastasis to T9 vertebra with possible cord compre ssion; metastatic right basilar pulmonary nodule and soft tissue deposits in the right posterior back and right pararenal space Patient is started on IV steroids, IV antibiotics, MRI of the spine and orthopedic consult Objective - Vital Signs Vital signs: Vital Signs Temp 98.1 F 10/23/18 08:00 Pulse 100 10/23/18 09:18 Resp 18 10/23/18 08:00 BP 148/92 10/23/18 08:00 Pulse Ox 94 L 10/23/18 08:00 Intake & Output 10/22/18 10/23/18 10/23/18 18:59 06:59 18:59 Weight 83.007 kg 84.7 kg Other: Voiding Method Bedpan # Voids 1 0 - Exam GENERAL: The patient is alert and oriented x3, not in any acute distress. Well developed, well nourished. HEENT: Pupils are round and equally reacting to light. EOMI. No scleral icterus. No conjunctival pallor. Normocephalic, atraumatic. No pharyngeal erythema. No thyromegaly. CARDIOVASCULAR: S1 and S2 present. No murmurs, rubs, or gallops. PULMONARY: Chest is clear to auscultation, no wheezing or crackles. ABDOMEN: Soft, nontender, nondistended, normoactive bowel sounds. No palpable organomegaly. -MUSCULOSKELETAL: No joint swelling or deformity. Tenderness in the middle of the back, most pronounced in the middle of the thoracic region. EXTREMITIES: No cyanosis, clubbing, or pedal edema. -NEUROLOGICAL: Gross neurological examination did not reveal any focal deficits. Weakness in both lower extremity, she can raise her both legs for have fluid above bed and against gravity. We'll sensation both lower extremity. SKIN: No rashes. - Labs CBC & Chem 7: 10/22/18 11:50 10/22/18 11:50 Labs: Abnormal Lab Results - Last 24 Hours (Table) 10/22/18 10/22/18 10/22/18 Range/Units 11:50 11:50 14:50 WBC 10.9 H (3.8-10.6) k/uL Neutrophils # 9.0 H (1.3-7.7) k/uL Lymphocytes # 0.9 L (1.0-4.8) k/uL BUN 22 H (7-17) mg/dL Glucose 112 H (74-99) mg/dL Alkaline Phosphatase 153 H (38-126) U/L Creatine Kinase 25 L (30-135) U/L Urine Appearance Cloudy H (Clear) Urine Protein 1+ H (Negative) Urine Ketones 2+ H (Negative) Urine Blood Trace H (Negative) Urine Nitrite Positive H (Negative) Ur Leukocyte Esterase Large H (Negative) Urine RBC 8 H (0-5) /hpf Urine WBC 54 H (0-5) /hpf Ur Squamous Epith Cells 63 H (0-4) /hpf Amorphous Sediment Few H (None) /hpf Urine Bacteria Few H (None) /hpf Urine Mucus Many H (None) /hpf Microbiology - Last 24 Hours (Table) 10/22/18 14:50 Urine Culture - Preliminary Urine,Voided Assessment and Plan Assessment: 1. Acute back pain; metastatic disease to spine with possible cord compression - Patient is scheduled to have an MRI this morning; orthopedic is on board and further recommendations after MRI stat 2. Sepsis/UTI; continue with antibiotic therapy to final culture is available 3. History of lung, renal and laryngeal CA with multiple metastases; status post tracheostomy; oncology on board and recommendations are pending 4. Hypertension; continue with home dose of metoprolol and lisinopril 5. COPD/asthma; albuterol inhaler 4 times a day when necessary 6. DVT prophylaxis; SCDs only due to possibility of surgical procedure CODE STATUS; full code Time with Patient: Less than 30
[2018-10-23 16:31] VITALS: BP 140/85; PULSE 110; RESP 18
[2018-10-23] MEDS ORDERED: FAMOTIDINE 20 MG TAB PO SCH (21:00)
--- NOTE | 2018-10-24 08:50 | CONS ---
CONSULTATION DATE OF SERVICE: 10/23/2018. REASON FOR CONSULTATION: Urinary tract infection. HISTORY OF PRESENT ILLNESS: The patient is a 62-year-old female with past medical history significant for laryngeal cancer status post recurrent and also history of right lung cancer treated with chemo radiation and skin cancer. Presented to the ER at [facility] with back pain. Pain has been in the upper mid back area. The pain has been getting worse for the last 3 weeks with no clear history of any fall and no significant radiation of the pain to the leg or any gallbladder problem. With these symptoms, the patient has been evaluated by the ER physician. On arrival to the ER, the patient has been running a low-grade fever of 99.8, mildly tachycardic. The patient did have a white count of 10.9 and UA was positive with large leukocyte esterase with bacteria. Influenza serology was negative. and urine culture has been obtained which are currently pending. The patient also had a CT of the abdomen and pelvis completed in the ER which did shows findings of 5 cm right lower pole renal calculus for metastatic disease douglas with destructive lesion of the anterior left iliac crest with limited history of the posterior right T9 vertebral body. The patient subsequently did have an MRI of the lumbosacral spine. The patient has been treated with Rocephin. Infectious Disease consulted for further recommendation regarding antibiotic therapy. Most of the information has been obtained from review of the chart as the patient currently does have tracheostomy and hard for her to communicate though did answer some questions by shaking her head yes or no. REVIEW OF SYSTEMS: Could not be reliably obtained. The positive points have been mentioned in HPI. PAST MEDICAL HISTORY: Asthma, COPD; gastroesophageal reflux disease, hypertension, osteoarthritis and pneumonia, laryngeal cancer, right lung cancer, right kidney cancer, Galvez's esophagus, hiatal hernia. PAST SURGICAL HISTORY: Bronchoscopy, EGD, colonoscopy, tracheostomy, Mediport placement, and surgery right kidney. SOCIAL HISTORY: Smoked from 1986 and quit in 2016. No drug or drinking use. FAMILY HISTORY: Mother with history of coronary artery disease, diabetes. Father with history of coronary artery disease. ALLERGIES: MORPHINE. MEDICATIONS: The patient is currently on DuoNeb, Xanax, Rocephin 1 g daily, Decadron, Pepcid, Robitussin, Dilaudid, Narcan. PHYSICAL EXAMINATION: Blood pressure 140/85 with a pulse of 110, temperature of 98.3, she is 97% on trach collar. General description is a middle aged female lying in bed in no distress. No tachypnea or accessory muscles of respiratory use. HEENT: No pallor or scleral icterus. Oral mucosal membranes are dry. Neck trachea is central. Lungs unlabored breathing. Clear to auscultation anteriorly. Heart S1, S2. Regular rate and rhythm. Abdomen soft. No tenderness. No guarding. No rigidity. EXTREMITIES: No edema of the feet. Skin examination: No rash or mass palpable. Neurological: Patient is mood and affect normal. LABS: Hemoglobin is 12.1, white count 10.9, BUN of 22, creatinine 0.57. Electrolytes have been normal. Liver enzymes are normal. Urine is positive. Influenza serology was negative. Urine culture currently pending. DIAGNOSTIC IMPRESSION AND PLAN: Patient with admitted to the hospital with upper mid back pain, more likely related to a metastatic involvement of the T9 vertebrae for which the patient undergoing an MRI of the lumbosacral spine. She did have a low-grade fever and underlying urinary tract infection not entirely excluded. Likely from enteric gram- negative pathogen. PLAN: 1. Rocephin 1 g IV piggyback to cover while waiting for the urine culture to finalize. 2. In view of the abnormal MRI, the patient possible transfer to tertiary care, with adjusted further after the patient evaluated by the ID service at that facility. Thank you for this consultation. MMODL / IJN: [id number] /
== END 2018-10-23 17:17 | disposition short-term general hospital (02) | DRG 872 ==
LOC: EC 10:04 → 3SCARD 15:33
PROVIDERS: ADMIT Internal Medicine; ATTEND Internal Medicine
DX: A41.9 Sepsis, unspecified organism (principal); N39.0 Urinary tract infection, site not specified; C64.1 Malignant neoplasm of right kidney, except renal pelvis; C78.01 Secondary malignant neoplasm of right lung; C79.51 Secondary malignant neoplasm of bone; K21.9 Gastro-esophageal reflux disease without esophagitis; I10 Essential (primary) hypertension; M19.90 Unspecified osteoarthritis, unspecified site; D02.0 Carcinoma in situ of larynx; G89.3 Neoplasm related pain (acute) (chronic); J44.9 Chronic obstructive pulmonary disease, unspecified; K44.9 Diaphragmatic hernia without obstruction or gangrene; K22.70 Barrett's esophagus without dysplasia; N20.0 Calculus of kidney; Z87.01 Personal history of pneumonia (recurrent); Z88.5 Allergy status to narcotic agent; Z79.899 Other long term (current) drug therapy; Z92.21 Personal history of antineoplastic chemotherapy; Z92.3 Personal history of irradiation; Z93.0 Tracheostomy status; Z87.891 Personal history of nicotine dependence; Z82.49 Family history of ischemic heart disease and other diseases of the circulatory system; Z83.3 Family history of diabetes mellitus; Z85.828 Personal history of other malignant neoplasm of skin
CPT/HCPCS: 36415; 71046; 72141; 72146; 72148; 74177; 80053; 81001; 82150; 82550; 82553; 83605; 83690; 84484; 85025; 87040; 87077; 87086; 87186; 87502; 93005; 94640; 94760; 96361; 96374; 96375; 99285